=== PATIENT | female | born 1945 | race Caucasian/White ===

== ENCOUNTER 2022-12-23 10:45 | Outpatient (CLI) | payer MEDICARE, OTHER, SELFPAY | END 2022-12-23 10:46 | disposition home or self-care (01) | PROVIDERS: PCP Family Medicine; Visit Provider Internal Medicine | DX: I42.2 Other hypertrophic cardiomyopathy (principal); I34.0 Nonrheumatic mitral (valve) insufficiency; I07.1 Rheumatic tricuspid insufficiency; I51.7 Cardiomegaly | CPT/HCPCS: 93306 ==

== ENCOUNTER 2023-03-23 10:36 | Outpatient (RCR) | payer SELFPAY | END 2024-02-19 14:46 | disposition home or self-care (01) | LOC: MOW 10:36 | PROVIDERS: PCP Family Medicine; Visit Provider Family Medicine | DX: Z76.0 Encounter for issue of repeat prescription (principal) | CPT/HCPCS: S5170 ==

== ENCOUNTER 2023-05-20 21:25 | Emergency (ER) | payer MEDICARE, OTHER, SELFPAY ==
[2023-05-20 21:34] VITALS: BP 121/74; PULSE 74; RESP 18; TEMP 36.8; O2SAT 99; BMI 18.3
--- NOTE | 2023-05-20 21:49 | ED.GENADULT ---
HPI - General Adult General Chief complaint: Laceration/Wound Stated complaint: fall w/head lac, dizzy Time Seen by Provider: 05/20/23 21:26 History of Present Illness HPI narrative: I had initiated this note as below --patient ultimately left before being seen. CC: Head Laceration, Dizzy pt. was dizzy and hit head. unsure what she hit it on. denies LOC 78-year-old woman presenting to the emergency department after falling and hitting her head. She sustained a laceration Related Data Home Medications Medication Instructions Recorded Confirmed No Known Home Medications 05/20/23 05/20/23 Allergies Allergy/AdvReac Type Severity Reaction Status Date / Time No Known Drug Allergies Allergy Verified 05/20/23 21:38 Exam Const: Vital Signs, click to edit/add: Vital Signs - 24 hr 05/20/23 21:34 Temperature 98.2 F Pulse Rate [Right Pulse Oximeter] 74 Respiratory Rate 18 Blood Pressure [Ri ght Upper Arm] 121/74 Pulse Oximetry 99 Oxygen Delivery Me thod Room Air Course Vital Signs Vital signs: Initial Vital Signs Temperature 98.2 F 05/20/23 21:34 Temperature Source Temporal Artery Scan 05/20/23 21:34 Pulse Rate 74 05/20/23 21:34 Respiratory Rate 18 05/20/23 21:34 Blood Pressure 121/74 05/20/23 21:34 Blood Pressure Mean 89 05/20/23 21:34 Blood Pressure Position Sitting 05/20/23 21:34 Pulse Oximetry 99 05/20/23 21:34 Oxygen Delivery Method Room Air 05/20/23 21:34 Vital Signs Temperature 98.2 F 05/20/23 21:34 Pulse Rate 74 05/20/23 21:34 Respiratory Rate 18 05/20/23 21:34 Blood Pressure 121/74 05/20/23 21:34 Pulse Oximetry 99 05/20/23 21:34 Oxygen Delivery Method Room Air 05/20/23 21:34 Temperature 98.2 F 05/20/23 21:34 Pulse Rate 74 05/20/23 21:34 Respiratory Rate 18 05/20/23 21:34 Blood Pressure 121/74 05/20/23 21:34 Pulse Oximetry 99 05/20/23 21:34 Oxygen Delivery Method Room Air 05/20/23 21:34 Discharge Plan Discharge Prescriptions: No Action No Known Home Medications Follow Up/Referrals: Labenski,Leland E, MD [Primary Care Provider] -
--- NOTE | 2023-05-20 22:06 | ED.NURSE ---
pt. wanting to go home. feels she is better. refusal form signed. pt. left ER ambulatory.
== END 2023-05-20 22:09 | disposition home or self-care (01) ==
LOC: ED 22:09
PROVIDERS: Emergency Provider Family Medicine; PCP Family Medicine
DX: Z53.21 Procedure and treatment not carried out due to patient leaving prior to being seen by health care provider (principal)
CPT/HCPCS: 99281

== ENCOUNTER 2024-04-04 10:37 | Observation (INO) | payer MEDICARE, OTHER, SELFPAY ==
[2024-04-04] VITALS (29 sets, daily range): BP systolic 85–124; BP diastolic 48–86; PULSE 63–73; RESP 16; TEMP 36.1–36.3; O2SAT 94–99; BMI 16.5; BMI 17.8
--- NOTE | 2024-04-04 10:55 | ED_ITS ---
HPI - General Adult General Date Seen: 04/04/24 Chief complaint: Weakness Stated complaint: weak, no energy, chills Time Seen by Provider: 04/04/24 10:54 History of Present Illness HPI narrative: 79-year-old female who is brought to the ER today by her brother. She has apparently been sick for a few weeks with low energy, weakness, feeling cold in freezing. They were concerned she might be anemic. She has not been eating and drinking well and getting good nutrition. She is feeling short of breath with walking. She has been missing her appointments with Dr. Figueredo History from the patient and her brother and [id number] is that she is just not doing well for the past several months. She has long history of depression but had been fairly functional over the winter last August and September. Sounds like her mental health began to deteriorate over the winter. She lost interest in leaving her apartment. She has not been participating in her other activities. She has been much more reclusive. For the past couple of months she has had progressive generalized weakness, fatigue, dyspnea on exertion. She has been dizzy sometimes when standing up. She has not left her apartment to go to the grocery store in several weeks. It sounds like she had some leftover cans of supinate she has been eating mostly that and drinking lots of water. Her brother checks on her from time to time. She finally called him to ask him to bring her some groceries today but rather than just drop off groceries he did want to stop the check on her. She has not been showering or taking baths lately because she has just been too dizzy and weak. She stopped taking all of her medications perhaps 3 weeks ago. It is a little bit unclear how long that was. She has had increasing weakness and shortness of breath. She feels like she is having trouble focusing. When we talk about her mental health she says that she adamantly does not want any inpatient mental health care. Sounds like she had her last appointment with her psychiatrist was remote visit in January-see records below. She missed her most recent checkup. She has not been taking the prescribed Remeron but had been taking the SSRI until she stopped all of her meds a couple of weeks ago. She is not suicidal or homicidal. She does want stay home and be with her cat. She recognizes that she is not function hearing are well and can not really take care of herself her beta herself at home. At the same time she is resistant to changing anything. She does not want inpatient stay. She has no previous medical records here at [facility]. She does have records through the [facility] record system. She has a history hypertrophic cardiomyopathy, hypertension, fibroid myocarditis, chronic diastolic CHF. Also history of hypothyroidism, malnutrition, vitamin-D deficiency, thyroid nodule, colon polyps, iron deficiency anemia , chronic fatigue syndrome, ordering disorder, depression, PTSD, dependent personality disorder, sleep apnea, fibromyalgia Most recent medication list from the [facility] system includes: Acetaminophen Atenolol 12.5 mg daily Lipitor Prozac 60mg daily Lasix 20 mg daily Hydroxyzine p.r.n. Synthroid 88 mcg daily Remeron Provigil potassium chloride Trazodone Hydrocortisone ointment Triamcinolone ointment In the [employer] record there is a letter from February 22 indicating that she had missed appointments for checkups at the [facility] and [facility] and they were going to limit her ability to schedule future appointments to same day. She had a virtual visit with psychiatry on January 31. From that note; Last visit was 01/04/24 with a plan to continue meds the same ? Since then, Sharee reports that her mood is feeling better this week. She has not started the mirtazapine as discussed at last OV Last week- states she was manicky- didn't sleep for 2.5 days- didn't feel tired, felt hyper- was trying to clean and organize things in her apartment. Mood is often variable- can go into deeper depression- this can last for a week or a day and often fluctuates depending on external stressors (like when her daughter was struggling with her mental health and when her brother was sick). She was going to try to keep track of her mood cycles so she can be more specific for this. Sleep is now back to normal and is good this week. ? Her physical therapist called us with some concern about this well. Wonders if she has ADHD. ? Has had a lot of stressors- Her daughter has not been doing well with her mental health. They are talking more now which has been helpful. Brother has been sick and not doing well. ? Had physical with Dr. Light on 12/13. Is working with integrative medicine ? Had started acupuncture -then couldn't go when she got sick. Planning to get this rescheduled. ? - catMitchell, is doing good, ? Still struggling with chronic pain and fatigue, low energy. She continues to take provigil (mode-alert) that she orders online. Taking this daily. Does not feel she can function without this. ? No longer using marijuana-wishes she had some as she believes this helps helps fibromyalgia and anxiety. ? She has had some difficulty with med adherence in the past, though has been taking them daily again recently ? SUICIDE RISK ASSESSMENT: Suicide risk: denies Pt is future oriented and identifies the following things that are worth living for: cat Homicide risk: none reported Self-injury risk: no ? Current medications: -trazodone 50mg at bedtime for sleep as needed- has been taking this again, though causes nasal congestion -hydroxyzine 25mg up to three times daily for anxiety -Fluoxetine 60mg once daily Patient has a history of chronic pain,?fibromyalgia, sleep apnea, hypertension,??hypothyroidism, hypertrophic cardiomyopathy and mental health diagnoses including major depression, chronic PTSD, anxiety and a history of dependent personality disorder; cluster B personality traits. She?has had historical difficulty with memory,?organization,?and distractibility without any notable memory changes or worsening at this time;?neuropsych testing was completed in 2014. At that time an ILS worker was recommended. 72 hour hold in [place] (-07/14/2021) due to passive thoughts of / worsening depression. ? She presents today for a medication recheck with worsening of depression and sleep last week- though reports that mood and sleep have improved this week. difficult to track cycles with mood as there is ambiguity surrounding symptoms- though given brief, fluctuating nature of these- it is more likely a response to environmental/psychosocial stressors. ? Still taking provigil from an unknown source and I do wonder if this is a contributing factor to her ups and downs with mood and intermittent sleep difficulties- though she does not wish to discontinue this. ? -retrial with mirtazapine; hold trazodone at first to see if this helps with sleep- will try a higher dose to target depression. Previous trial was brief and only at 7.5mg. ? Expressed concern re: continuing on provigil without this being monitored (in past she had ordered this internationally when it was not being prescribed to her). Encouraged her to stop this given cardiac and mental health risks. Future considerations include something like olanzapine or sapphris for sleep at night, depression, and anxiety. Could consider trial with buspar for anxiety ? ? PLAN ? Patient Instructions Sharee -It was really nice to meet with you today. Here is the plan we discussed. Please call me at the clinic , or send a medical message in the meantime with any further questions, concerns, or worsening symptoms. ? 1. Continue the following medications: -trazodone 50mg at bedtime as needed --Fluoxetine 60mg once daily ? 2. Change the following medications: -let's retry mirtazapine at a higher dose to help with sleep and depression/ anxiety - take 1/2 tablet- 7.5mg at bedtime for 1 week, then increase to 1 tablet (15mg) at bedtime -hold trazodone as you start the mirtazapine as you may not need this; do not take hydroxyzine at bedtime along with the mirtazapine as this may make you too tired ? 3. Therapy recommendations: -Consider therapy Related Data Home Medications ?Medication ?Instructions ?Recorded ?Confirmed atenolol 04/04/24 atorvastatin 20 mg tablet 20 mg PO DAILY 04/04/24 04/04/24 fluoxetine 20 mg tablet 20 mg PO DAILY 04/04/24 04/04/24 fluoxetine 40 mg capsule 40 mg PO DAILY 04/04/24 04/04/24 furosemide 20 mg tablet 20 mg PO DAILY 04/04/24 04/04/24 hydroxyzine pamoate 04/04/24 levothyroxine 88 mcg capsule 88 mcg PO DAILY 04/04/24 04/04/24 mirtazapine 15 mg tablet 15 mg PO DAILY 04/04/24 04/04/24 modafinil 200 mg tablet 200 mg PO DAILY 04/04/24 04/04/24 potassium chloride 20 mEq 20 meq PO DAILY 04/04/24 04/04/24 tablet,extended release(part/cryst) (Klor-Con M) trazodone 50 mg tablet 50 mg PO DAILY 04/04/24 04/04/24 Allergies Allergy/AdvReac Type Severity Reaction Status Date / Time No Known Drug Allergies Allergy Verified 04/04/24 14:09 [facility] Social History Smoking Status: Former smoker How often do you have a drink containing alcohol: never AUDIT-C Alcohol total score: 0 Non-prescribed substance use: marijuana (any form) Exam Const: Vital Signs, click to edit/add: Vital Signs - 24 hr 04/04/24 10:51 04/04/24 11:12 04/04/24 11:15 Temperature 97.1 F L Pulse Rate 73 69 Pulse Rate [Left P ulse Oximeter] 68 Respiratory Rate 16 Blood Pressure Blood Pressure [Ri ght Upper Arm] 115/80 Pulse Oximetry 99 98 98 Oxygen Delivery Me thod Room Air 04/04/24 11:30 04/04/24 11:45 04/04/24 11:47 Temperature Pulse Rate 68 69 69 Pulse Rate [Left P ulse Oximeter] Respiratory Rate Blood Pressure 115/86 Blood Pressure [Ri ght Upper Arm] Pulse Oximetry 97 97 97 Oxygen Delivery Me thod 04/04/24 11:48 04/04/24 12:27 04/04/24 12:30 Temperature Pulse Rate 70 71 67 Pulse Rate [Left P ulse Oximeter] Respiratory Rate Blood Pressure Blood Pressure [Ri ght Upper Arm] Pulse Oximetry 97 94 96 Oxygen Delivery Me thod 04/04/24 12:35 04/04/24 13:00 04/04/24 13:02 Temperature Pulse Rate 68 71 66 Pulse Rate [Left P ulse Oximeter] Respiratory Rate Blood Pressure 105/71 Blood Pressure [Ri ght Upper Arm] Pulse Oximetry 97 95 97 Oxygen Delivery Me thod 04/04/24 13:03 04/04/24 13:30 04/04/24 13:32 Temperature Pulse Rate 67 72 65 Pulse Rate [Left P ulse Oximeter] Respiratory Rate Blood Pressure 105/65 Blood Pressure [Ri ght Upper Arm] Pulse Oximetry 96 97 96 Oxygen Delivery Me thod 04/04/24 14:00 04/04/24 14:02 04/04/24 14:30 Temperature Pulse Rate 70 72 72 Pulse Rate [Left P ulse Oximeter] Respiratory Rate Blood Pressure Blood Pressure [Ri ght Upper Arm] Pulse Oximetry 94 94 96 Oxygen Delivery Me thod Course Course ED Course: Constitutional: Appears well-developed. Alert but relies on her [id number] and brother to provide a lot of her history. Hair is on wash. Patient says she just has not had energy to get out of bed or take a bath or shower in the past couple of weeks. She stopped taking her meds for couple of weeks. Temperature 97.1?. HENT: Head: Atraumatic. Nose: Nose normal. Mouth/Throat: Oral mucosa is clear and moist. no trismus. Pharynx normal Eyes: Conjunctivae normal. EOM normal. Pupils equal, round, and reactive to light. No scleral icterus. Neck: Normal range of motion. Neck supple. No tracheal deviation present. No thyroid masses. Cardiovascular: Normal rate, regular rhythm. No gallop. No friction rub. No murmur heard. Symmetric radial artery pulses Pulmonary/Chest: Effort normal. No stridor. No respiratory distress. No wheezes. No rales. No rhonchi . No tenderness. Abdominal: Soft. Bowel sounds normal. No distension. No mass. No tenderness. No rebound. No guarding. No CVA tenderness Musculoskeletal: RUE: Normal range of motion. No tenderness. No deformity LUE: Normal range of motion. No tenderness. No deformity RLE: Normal range of motion. No edema. No tenderness. No deformity LLE: Normal range of motion. No edema. No tenderness. No deformity Neurological: Alert and oriented to person, place, and time. Normal strength. CN II-VII intact. No sensory deficit. GCS eye subscore is 4. GCS verbal subscore is 5. GCS motor subscore is 6. Normal coordination Skin: Skin is warm and dry. No rash noted. No pallor. Normal capillary refill. Psychiatric: Initially says very passive, poor eye contact, looking at her brother instead of me. Relies on her family provide a lot of her initial history. She then BP becomes a little bit more conversant. She does have a long history of depression and PTSD. She and her family agree that she was doing pretty well last fall in last September. Over the winter her mental health deteriorated. It sounds like she had stressors with a problem with her daughter and her brother's health. It sounds like she has really gone into a deep dark place over the winter. She has. Leaving her apartment or participating in activities. She does have a psychiatrist and her last remote visit with the psychiatrist was in January. At that time her psychiatrist was recommending that she start Remeron. Ultimately she did not start taking it because she was worried about side effects. She was taking her Zoloft. However it sounds like she has been sporadic on taking her medications (all of them including Lasix and thyroid medicine as well) and she is pretty sure she has not taken any of them in the past 3 weeks or so. She says she accidentally spilled her pills on the floor and just did not have the energy to sort them out. She has not left her apartment in several weeks. It sounds like she had some leftover cans of food so she has been eating some soup. She says she mostly just drinks a lot of water. Vital Signs Vital signs: Initial Vital Signs Temperature 97.1 F L 04/04/24 10:51 Temperature Source Temporal Artery Scan 04/04/24 10:51 Pulse Rate 68 04/04/24 10:51 Respiratory Rate 16 04/04/24 10:51 Blood Pressure 115/80 04/04/24 10:51 Blood Pressure Mean 91 04/04/24 10:51 Blood Pressure Position Semi-Fowlers 04/04/24 10:51 Pulse Oximetry 99 04/04/24 10:51 Oxygen Delivery Method Room Air 04/04/24 10:51 Vital Signs Temperature 97.1 F L 04/04/24 10:51 Pulse Rate 68 04/04/24 10:51 Respiratory Rate 16 04/04/24 10:51 Blood Pressure 115/80 04/04/24 10:51 Pulse Oximetry 99 04/04/24 10:51 Oxygen Delivery Method Room Air 04/04/24 10:51 Temperature 97.1 F L 04/04/24 10:51 Pulse Rate 72 04/04/24 14:30 Respiratory Rate 16 04/04/24 10:51 Blood Pressure 105/65 04/04/24 13:32 Pulse Oximetry 96 04/04/24 14:30 Oxygen Delivery Method Room Air 04/04/24 10:51 Medications Administered Medications: Discontinued Medications Generic Name Dose Route Start Last Admin Trade Name Freq PRN Reason Stop Dose Admin Cephalexin HCl 500 mg 04/04/24 14:53 04/04/24 15:07 Cephalexin 500 Mg Capsule PO 04/04/24 14:54 500 mg ONCE ONE Administration Folic Acid 1 mg/ Multivitamins 1,011.2 mls @ 500 mls/hr 04/04/24 12:40 04/04/24 13:22 10 ml/ Thiamine HCl 100 mg/ IV 04/04/24 14:41 500 mls/hr Sodium Chloride .Q2H2M JAYLENE Administration Medical Decision Making MDM Narrative Medical decision making narrative: 79-year-old female with a complex past medical history presenting to the ER today after being brought in by her brother and [id number] with concern for generalized weakness, dyspnea on exertion, poor functioning, not leaving her house now for several weeks, and she has been off all of her medications for at least 3 weeks. Differential for her symptoms is quite broad. 1. Psych. Has a long history of mental health problems and depression. It sounds like at least some of her symptoms were probably triggered by severe worsening depression over the winter. It has gotten to the point where she is not leaving her house or participating any of her normal activities. She stopped taking her meds. She has not currently suicidal. No apparent loosen a shins or delusions. However it does seem that her overall level of function is impairing her ability to care for herself. She has been leaving her house, buying groceries, or taking her meds. 2. Consider metabolic causes of generalized weakness. She does report mostly drinking lot of water and there was concern that she is not getting enough nutrition. I have ordered IV fluids with thiamine and folate. Fortunately sodium level looks normal. Kidney function other likes lytes okay. LFTs essentially normal save for minimal abnormality of AST at 45. Albumin is 4.7. 3. Endocrine. She does have a history of hypothyroidism and is not been taking her Synthroid for the past 3 weeks, at least. TSH elevated, but free T4 is pending. strongly suspect hypothyoidism. will re-initiate synthroid PO here. no definitive evidence for bradycardia, but she does have borderline hypothermia.. Blood glucose is normal at 112. Sodium is normal at 136. Potassium mildly low at 3.5. No clear lab evidence to suggest adrenal insufficiency. 2cm throid nodule that requires follow up outpatient US. 4. Cardiac. Has a reported history of myocarditis in chronic diastolic CHF. Workup here in the ER does show abnormal EKG with nonspecific T-wave and ST changes, large QRS voltages. Mildly abnormal troponin at 0.07. Repeat troponin is unchanged, arguing against ACS. Suspect related to underlying LVH or myocarditis.. N terminal proBNP is also elevated at about 8400. Consider possible CHF but she is not having any peripheral edema and chest x-ray does not show any pulmonary edema. Although she has dyspnea with activity and exertion, she is not hypoxic at rest. No tachycardia or significant bradycardia. Chest CT neg for PE and neg for pulmonary edema. In review of records from [facility] she had a transesophageal echocardiogram on 03/14/2023 Final Impressions: 1. Decreased left ventricular size, increased global systolic function with an estimated EF of 65 - 70%. 2. Severe evidence of left ventricular hypertrophy. No evidence for NUNO on today's imaging. 3. Mildly enlarged left atrium. 4. The mitral valve is sclerotic (no prolapse/flail), moderate very early peaking mitral regurgitation. 5. Tricuspid valve is myxomatous. Moderate tricuspid regurgitation. 6. Atrial septum is intact. 7. Negative bubble study. 8. No evidence of thrombus present in the left atrial appendage. 9. Normal sized aortic arch with mild plaque visualized. 5. Pulmonary. Chest x-ray negative for any pneumonia or pulmonary edema. Lung sounds clear. No wheezing or bronchospasm. Chest x-ray does show a [address] is obtained and is neg for PE, pna, CHF. It does show a 10mm calcified RLL nodule. also 2cm throid nodule that requires follow up outpatient US. In review of records through [facility] she had a screening chest CT in May 2023. She had up partially calcified nodule in the right lower lobe measuring 9 mm. Recommended continued surveillance with another CT scan in 12 months at that time. 6. ID UA abnormal. no clear sign of urosepsis. will treat with PO cephalexin. d/w Hospitalist Dr. elias, who will accept Lab Data Labs: Lab Results 04/04/24 04/04/24 04/04/24 Range/Units 11:45 12:50 14:33 WBC 4.07 L (4.50-11.00) K/uL RBC 4.34 (4.00-5.20) m/uL Hgb 13.8 (12.0-16.0) gm/dL Hct 40.7 (33.0-51.0) % MCV 94 (80-100) fL MCH 32 (26-34) pg MCHC 34 (32-36) gm/dL RDW Coeff of Lea 12.1 (11.5-15.5) % Plt Count 219 (140-440) K/uL Neut % (Auto) 60.2 (42.0-72.0) % Lymph % (Auto) 28.5 (20-44) % [place] % (Auto) 8.8 (0.0-11.0) % Eos % (Auto) 2.0 (0.0-7.0) % Baso % (Auto) 0.5 (0.0-3.0) % Neut # (Auto) 2.50 (1.7-7.0) K/uL Lymph # (Auto) 1.20 (0.90-2.90) K/uL [place] # (Auto) 0.40 (0.00-0.90) K/UL Eos # (Auto) 0.10 (0.00-0.50) K/uL Baso # (Auto) 0.00 (0.00-0.30) K/uL Abs Immat Gran (auto) 0.00 (0.00-0.30) K/uL Imm/Tot Granulo (auto) 0.0 % Sodium 136 (135-149) mmol/L Potassium 3.5 L (3.6-5.1) mmol/L Chloride 98 (96-114) mmol/L Carbon Dioxide 28 (20-32) mmol/L Anion Gap 10 (7-15) mEq/L BUN 20 (7-30) mg/dL Creatinine 1.1 (0.5-1.5) mg/dL Estimated Creat Clear 27.60 Estimated GFR 52 ml/min Glucose 112 (60-115) mg/dL Lactate 1.5 (0.5-1.9) mmol/L Calcium 9.5 (8.4-10.6) mg/dL Total Bilirubin 0.6 (0.1-1.5) mg/dL AST 45 H (12-35) U/L ALT 14 (4-35) U/L Alkaline Phosphatase 122 (40-150) U/L Troponin I 0.07 H* 0.07 H* (0.01-0.04) ng/mL NT-Pro-B Natriuret Pep 8470 pg/mL Total Protein 7.6 (6.0-8.3) g/dL Albumin 4.7 (3.3-5.0) g/dL TSH 7.740 H (0.270-4.200) uIU/mL Urine Color Dark yellow (Yellow) Urine Appearance Cloudy A (Clear) Urine pH 5.5 (5.0-8.5) Ur Specific [place] 1.025 (1.000-1.030) Urine Protein 1+ A (Negative) Urine Glucose (UA) Negative (Negative) Urine Ketones Trace A (Negative) Urine Blood 1+ A (Negative) Urine Nitrite Negative (Negative) Urine Bilirubin 2+ A (Negative) Urine Urobilinogen 0.2 (0.2-1.0) Ur Leukocyte Esterase 3+ A (Negative) Urine RBC 0-2 (0-2) Urine WBC 10-25 A (0-5) Ur Squamous Epith Cells Few (None-Few) Urine Bacteria Moderate A (None) Urine Mucus Many A (None) Ethyl Alcohol < 0.01 L (0.01-0.03) % Imaging Data Chest x-ray: Attestation: I have reviewed the pertinent imaging results. Radiologist's impression: Impression: 1. No acute cardiopulmonary abnormality identified. 2. Nodular opacity in the right lower lobe measuring 10 mm. Recommend nonemergent chest CT for further characterization. CT scan - head: Attestation: I have reviewed the pertinent imaging results. Radiologist's impression: Impression: 1. Age-related changes of the brain without acute intracranial abnormality. CT scan - chest: Attestation: I have reviewed the pertinent imaging results. Radiologist's impression: IMPRESSION: 1. No evidence of pulmonary embolus. 2. Moderate centrilobular emphysema. 3. Prominent left ventricular hypertrophy. 4. Enlargement of the left lobe of the thyroid, probable 2.0 centimeter lesion at the lower pole. Suggest follow-up outpatient thyroid ultrasound for further characterization. 5. Old granulomatous disease. Discharge Plan Discharge Prescriptions: No Action atenolol atorvastatin 20 mg tablet 20 mg PO DAILY fluoxetine 40 mg capsule 40 mg PO DAILY fluoxetine 20 mg tablet 20 mg PO DAILY furosemide 20 mg tablet 20 mg PO DAILY hydroxyzine pamoate levothyroxine 88 mcg capsule 88 mcg PO DAILY mirtazapine 15 mg tablet 15 mg PO DAILY modafinil 200 mg tablet 200 mg PO DAILY potassium chloride [Klor-Con M20] 20 mEq tablet,ER particles/crystals 20 meq PO DAILY trazodone 50 mg tablet 50 mg PO DAILY Follow Up/Referrals: Leland Light MD [Primary Care Provider] -
--- NOTE | 2024-04-04 11:37 | CRLHL7_ITS ---
For Patients: As a result of the Century Cures Act, medical imaging exams and procedure reports are released immediately into your electronic medical record. You may view this report before your referring provider. If you have questions, please contact your health care provider. Indication: Weakness, dizziness moderate Technique: Volumetric multidetector CT images of the head were obtained without the administration of low osmolar intravenous contrast. Comparison: None available Findings: There is no intra-axial or extra-axial fluid collection. There is no mass effect or midline shift. There is age-related cortical atrophy with mild sulcal widening and ex vacuo dilatation of the lateral ventricles. There are chronic small vessel disease changes in the subcortical and periventricular white matter without lost barber-white differentiation. The orbits and their contents are grossly within normal limits. The bony calvarium is grossly intact. The paranasal sinuses are clear. The mastoid air cells are well aerated. Impression: 1. Age-related changes of the brain without acute intracranial abnormality. Please note that all CT scans at this facility use dose modulation, iterative reconstruction, and/or weight-based dosing when appropriate to reduce radiation dose to as low as reasonably achievable. Dictated by Sam Davis MD @ 04/04/2024 12:49:02 PM (Electronically Signed)
--- NOTE | 2024-04-04 11:38 | CRLHL7_ITS ---
For Patients: As a result of the Century Cures Act, medical imaging exams and procedure reports are released immediately into your electronic medical record. You may view this report before your referring provider. If you have questions, please contact your health care provider. Indication: Weakness, dyspnea on exertion. Technique: Two view(s) of the chest. Comparison: 11/27/2021 radiograph. Findings: Normal cardiomediastinal silhouette. Mild atherosclerotic aortic calcifications. Pulmonary vasculature is normal. Lungs are well inflated. Nodular density measuring 10 mm along the right diaphragmatic margin on frontal view appears to be retrocardiac within the right lower lobe on lateral view. No focal consolidation. No pleural effusion or pneumothorax. No acute osseous abnormality identified. Impression: 1. No acute cardiopulmonary abnormality identified. 2. Nodular opacity in the right lower lobe measuring 10 mm. Recommend nonemergent chest CT for further characterization. Dictated by Ana Corrigan MD @ 04/04/2024 12:15:59 PM (Electronically Signed)
[2024-04-04 11:57] LABS: Lactate* 1.5 mmol/L (0.5-1.9)
[2024-04-04 12:00] LABS: Basophils Percent Auto 0.5 % (0.0-3.0); Hematocrit 40.7 % (33.0-51.0); Hemoglobin* 13.8 gm/dL (12.0-16.0); Lymphocytes Percent Auto 28.5 % (20-44); Mean Corpuscular HGB Conc 34 gm/dL (32-36); Mean Corpuscular Hemoglobin 32 pg (26-34); Mean Corpuscular Volume 94 fL (80-100); Monocytes Percent Auto 8.8 % (0.0-11.0); Neutrophils Percent Auto 60.2 % (42.0-72.0); Platelet Count* 219 K/uL (140-440); RDW Coefficient of Variation % 12.1 % (11.5-15.5); Red Blood Count 4.34 m/uL (4.00-5.20); White Blood Count* 4.07 K/uL (4.50-11.00)
[2024-04-04 12:10] LABS: Slide Review Reflex No
[2024-04-04 12:12] LABS: Albumin* 4.7 g/dL (3.3-5.0); Chloride* 98 mmol/L (96-114); Sodium* 136 mmol/L (135-149)
[2024-04-04 12:13] LABS: Potassium* 3.5 mmol/L (3.6-5.1)
[2024-04-04 12:14] LABS: Creatinine* 1.1 mg/dL (0.5-1.5); Estimated Glomerular Filt Rate 52 ml/min
[2024-04-04 12:15] LABS: Alanine Aminotransferase* 14 U/L (4-35); Alkaline Phosphatase* 122 U/L (40-150); Anion Gap 10 mEq/L (7-15); Aspartate Amino Transferase* 45 U/L (12-35); Bilirubin Total* 0.6 mg/dL (0.1-1.5); Blood Urea Nitrogen* 20 mg/dL (7-30); Carbon Dioxide* 28 mmol/L (20-32); Glucose* 112 mg/dL (60-115); Total Protein* 7.6 g/dL (6.0-8.3)
[2024-04-04 12:16] LABS: Calcium* 9.5 mg/dL (8.4-10.6)
[2024-04-04 12:27] LABS: Ethanol* < 0.01 % (0.01-0.03); NT Pro B Type NatriureticPept* 8470 pg/mL
[2024-04-04 12:28] LABS: Troponin I* 0.07 ng/mL (0.01-0.04)
--- NOTE | 2024-04-04 12:39 | CRLHL7_ITS ---
For Patients: As a result of the Century Cures Act, medical imaging exams and procedure reports are released immediately into your electronic medical record. You may view this report before your referring provider. If you have questions, please contact your health care provider. INDICATION: Weakness and shortness of breath TECHNIQUE: CT chest PE was acquired with 95 cc Isovue 370 intravenous contrast. COMPARISON: None. FINDINGS: Heart and vasculature: Contrast opacification of the pulmonary arterial tree is adequate. No sign of pulmonary embolism. Thoracic aorta is normal in caliber. Left ventricular hypertrophy. No pericardial effusion Lungs and pleural: No pleural effusion or pneumothorax. Moderate centrilobular emphysema. Calcified granulomas right lower lobe. Lymph nodes/mediastinum: Calcified subcarinal lymph nodes. Enlargement of the left lobe of the thyroid inferiorly, likely a 2.0 centimeter lesion. Chest wall: Bilateral breast implants. Upper abdomen: Colonic diverticulosis. Bones: Unremarkable for age. IMPRESSION: 1. No evidence of pulmonary embolus. 2. Moderate centrilobular emphysema. 3. Prominent left ventricular hypertrophy. 4. Enlargement of the left lobe of the thyroid, probable 2.0 centimeter lesion at the lower pole. Suggest follow-up outpatient thyroid ultrasound for further characterization. 5. Old granulomatous disease. Please note that all CT scans at this facility use dose modulation, iterative reconstruction, and/or weight-based dosing when appropriate to reduce radiation dose to as low as reasonably achievable. Dictated by Ronnie Frazier MD @ 04/04/2024 2:33:03 PM (Electronically Signed)
[2024-04-04 13:17] LABS: Appearance Urine Cloudy (Clear); Bilirubin Urine 2+ (Negative); Blood Urine 1+ (Negative); Color Urine Dark yellow (Yellow); Glucose Urine Negative (Negative); Ketones Urine Trace (Negative); Leukocyte Esterase Urine 3+ (Negative); Nitrite Urine Negative (Negative); Protein Urine 1+ (Negative); Specific Gravity Urine 1.025 (1.000-1.030); Urobilinogen Urine 0.2 (0.2-1.0); pH Urine 5.5 (5.0-8.5)
[2024-04-04 13:56] LABS: Bacteria Urine Moderate; Mucus Urine Many; RBC Urine 0-2 (0-2); Squamous Epithelial Cell Urine Few (None-Few)
[2024-04-04] MEDS: cephALEXin 500 MG CAPSULE PO ×2 (15:07→21:02)
[2024-04-04 15:26] LABS: Troponin I* 0.07 ng/mL (0.01-0.04)
[2024-04-04] MEDS: LEVOTHYROXINE 100 MCG TABLET PO (15:35)
--- NOTE | 2024-04-04 16:26 | PM.IMHP1 ---
Hospitalist- H&P: [place] History of Present Illness Date Seen: 04/04/24 Chief complaint: weak, no energy, chills Narrative: Sharee Grimes is a 79 year old female with longstanding history of depression as well as hypertrophic cardiomyopathy, heart failure, fibromyalgia, hypothyroidism presents with several weeks of worsening depression, fatigue, dyspnea with exertion, poor appetite and weakness. History is obtained from the patient as well as her [id number], Susan, and brother, Adan, who live in [place]. Patient reports that she has had problems for weeks. Her brother and [id number] have noted a significant change especially in the last 3 weeks. During that time she reports basically that she has not left her apartment except wants to pay her rent across the street. She has not been taking any of her medications except yesterday she did take her antidepressant, fluoxetine, and levothyroxine. No other medications in the last 3 weeks at least. She tells me she did not really even recognize that she was not taking her medications. She has not been going out to get food. She says that she had enough food in her place a month ago that she has not had to go shopping. She has a poor appetite and has not been eating much. Her mood has been quite depressed. Over the past couple months she has been missing appointments has been told by her [facility] that they will not let her schedule appointments in advance anymore because of all the missed appointments. Mostly she reports that she has just does not care anymore that her health is on such a decline. She denies suicidality. She indicates however that she has not taken any attempt to get help from friends, family or healthcare providers. She has been in treatment for depression in the past. She has been getting outpatient treatment through [facility] with Karen Darden who manages her medications. She does not smoke but has a remote history of smoking. She tells me she carries a diagnosis of COPD but is not being treated for it. She does not drink alcohol. She occasionally smokes cannabis but has not for months. She has not been making her appointments with physical therapy, Chester Liu, her primary care provider, Dr. Light or Karen Darden. She has also gotten healthcare from the [facility]. She reports she has had chronic dyspnea with exertion but that has gotten worse recently. She reports that she had to stop 3 times [address] across the [address] catch her breath. She has very poor exercise tolerance. She also reports being quite weak. She has very little physical activity recently. She reports she has been eating less and her appetite has been poor. It is unclear if she has had weight loss. Over the past several years her weight has fluctuated between 45 and 50 kg. She has not had problems with vomiting. Her stools are small and very loose but not frequent. She is not aware of any urinary symptoms though urinalysis is abnormal. No dysuria or frequency or urgency. She has not any bloody stools. She does not have abdominal pain or fever. She does not have chest pain. She has been followed by [facility] for her hypertrophic cardiomyopathy. Her last visit was in 02/27/2023. She had an echo around that time showing ejection fraction of 65-70% with evidence of severe left ventricular hypertrophy. No evidence for Jason on today's imaging. She has a sclerotic mitral valve and moderate to severe mitral regurgitation and moderate to severe tricuspid regurgitation. Cardiology recommendation at that time was to continue home medications atenolol and Lasix and additional p.r.n. Lasix if getting dyspneic. No other intervention was recommended other than annual follow-up. Review of Systems Narrative: Complete review of systems is unremarkable except as noted above Const: Denies: change in weight PFSH [facility] Medical History (Updated 04/04/24 @ 17:12 by Ken Graff MD) Hypertension ?I10 - Essential (primary) hypertension (ICD-10) Elevated troponin ?R79.89 - Other specified abnormal findings of blood chemistry (ICD-10) COPD (chronic obstructive pulmonary disease) ?J44.9 - Chronic obstructive pulmonary disease, unspecified (ICD-10) Weakness ?R53.1 - Weakness (ICD-10) Fatigue ?R53.83 - Other fatigue (ICD-10) Dyspnea ?R06.00 - Dyspnea, unspecified (ICD-10) Protein calorie malnutrition ?E46 - Unspecified protein-calorie malnutrition (ICD-10) Noncompliance with medication regimen ?Z91.148 - Patient's other noncompliance with medication regimen for other reason (ICD-10) Hypothyroidism ?E03.9 - Hypothyroidism, unspecified (ICD-10) Vitamin D deficiency ?E55.9 - Vitamin D deficiency, unspecified (ICD-10) Chronic fatigue syndrome ?G93.32 - Myalgic encephalomyelitis/chronic fatigue syndrome (ICD-10) Restless legs syndrome ?G25.81 - Restless legs syndrome (ICD-10) Fibromyalgia ?M79.7 - Fibromyalgia (ICD-10) Depression ?F32.A - Depression, unspecified (ICD-10) Hypertrophic cardiomyopathy ?I42.2 - Other hypertrophic cardiomyopathy (ICD-10) Surgical History (Updated 04/04/24 @ 16:49 by Ken Graff MD) S/P thyroid biopsy ?Z98.890 - Other specified postprocedural states (ICD-10) H/O ovarian cystectomy ?Z98.890 - Other specified postprocedural states (ICD-10) ?Z87.42 - Personal history of other diseases of the female genital tract (ICD-10) History of colonoscopy ?Z98.890 - Other specified postprocedural states (ICD-10) H/O breast augmentation ?Z98.82 - Breast implant status (ICD-10) H/O oral surgery ?Z98.890 - Other specified postprocedural states (ICD-10) Social History (Updated 04/04/24 @ 16:51 by Ken Graff MD) Narrative: She lives alone in an apartment in [place]. She reports closest family is her brother, Adan and auxvhp-du-aab Susan who also live in [place]. They indicate interest and motivation to be vigilant about checking on Sharee to make sure she is doing okay and taking her medications, taking care of herself, making medical appointments after discharge. She has a remote history of smoking but not recently. She does not drink alcohol. She does not use recreational drugs except a rare use of cannabis but not recently Smoking Status: Former smoker How often do you have a drink containing alcohol: never AUDIT-C Alcohol total score: 0 Non-prescribed substance use: marijuana (any form) Meds Home Medications and Allergies Home Medications ?Medication ?Instructions ?Recorded ?Confirmed ?Type atenolol 25 mg tablet 12.5 mg PO DAILY 04/04/24 04/04/24 History atorvastatin 20 mg tablet 20 mg PO HS 04/04/24 04/04/24 History fluoxetine 20 mg tablet 20 mg PO DAILY 04/04/24 04/04/24 History fluoxetine 40 mg capsule 40 mg PO DAILY 04/04/24 04/04/24 History furosemide 20 mg tablet 20 mg PO DAILY 04/04/24 04/04/24 History levothyroxine 88 mcg capsule 88 mcg PO DAILY 04/04/24 04/04/24 History mirtazapine 15 mg tablet 15 mg PO HS 04/04/24 04/04/24 History modafinil 200 mg tablet 200 mg PO TID 04/04/24 04/04/24 History potassium chloride 20 mEq 20 meq PO DAILY 04/04/24 04/04/24 History tablet,extended release(part/cryst) (Klor-Con M) Allergies Allergy/AdvReac Type Severity Reaction Status Date / Time No Known Drug Allergies Allergy Verified 04/04/24 14:09 Exam Narrative: Exam Narrative: She is alert and appears in no distress. She is pleasant cooperative and gives her own history. She has fairly good recall of recent events though somewhat vague about events leading up to this hospital stay. Eyes are normal. Sclerae nonicteric. Extraocular movements are full. There is no facial asymmetry. Oropharynx is normal. Neck is supple without mass or adenopathy. No jugular venous distension. Respirations are clear to auscultation. She has diminished breath sounds. No wheezing rales or rhonchi. Breathing is unlabored. Cardiovascular: S1, S2, regular rate and rhythm. No murmur gallop or rub. Distant heart sounds. Abdomen is soft without tenderness or mass. Bowel sounds are present. Extremities with no edema. Intact peripheral pulses. She moves all 4 extremities well. No edema. Const: Vital Signs, click to edit/add: Vital Signs - 24 hr 04/04/24 10:51 04/04/24 11:12 04/04/24 11:15 Temperature 97.1 F L Pulse Rate 73 69 Pulse Rate [Left P ulse Oximeter] 68 Respiratory Rate 16 Blood Pressure Blood Pressure [Ri ght Upper Arm] 115/80 Pulse Oximetry 99 98 98 Oxygen Delivery Me thod Room Air 04/04/24 11:30 04/04/24 11:45 04/04/24 11:47 Temperature Pulse Rate 68 69 69 Pulse Rate [Left P ulse Oximeter] Respiratory Rate Blood Pressure 115/86 Blood Pressure [Ri ght Upper Arm] Pulse Oximetry 97 97 97 Oxygen Delivery Me thod 04/04/24 11:48 04/04/24 12:27 04/04/24 12:30 Temperature Pulse Rate 70 71 67 Pulse Rate [Left P ulse Oximeter] Respiratory Rate Blood Pressure Blood Pressure [Ri ght Upper Arm] Pulse Oximetry 97 94 96 Oxygen Delivery Me thod 04/04/24 12:35 04/04/24 13:00 04/04/24 13:02 Temperature Pulse Rate 68 71 66 Pulse Rate [Left P ulse Oximeter] Respiratory Rate Blood Pressure 105/71 Blood Pressure [Ri ght Upper Arm] Pulse Oximetry 97 95 97 Oxygen Delivery Tx thod 04/04/24 13:03 04/04/24 13:30 04/04/24 13:32 Temperature Pulse Rate 67 72 65 Pulse Rate [Left P ulse Oximeter] Respiratory Rate Blood Pressure 105/65 Blood Pressure [Ri ght Upper Arm] Pulse Oximetry 96 97 96 Oxygen Delivery Me thod 04/04/24 14:00 04/04/24 14:02 04/04/24 14:30 Temperature Pulse Rate 70 72 72 Pulse Rate [Left P ulse Oximeter] Respiratory Rate Blood Pressure Blood Pressure [Ri ght Upper Arm] Pulse Oximetry 94 94 96 Oxygen Delivery Me thod 04/04/24 15:00 04/04/24 15:02 04/04/24 15:30 Temperature Pulse Rate 67 73 70 Pulse Rate [Left P ulse Oximeter] Respiratory Rate Blood Pressure 98/60 Blood Pressure [Ri ght Upper Arm] Pulse Oximetry 94 96 97 Oxygen Delivery Tx thod 04/04/24 15:32 04/04/24 15:32 04/04/24 16:00 Temperature Pulse Rate 68 68 68 Pulse Rate [Left P ulse Oximeter] Respiratory Rate Blood Pressure 107/66 107/66 Blood Pressure [Ri ght Upper Arm] Pulse Oximetry 97 97 99 Oxygen Delivery Me thod 04/04/24 16:02 Temperature Pulse Rate 68 Pulse Rate [Left P ulse Oximeter] Respiratory Rate Blood Pressure 124/75 Blood Pressure [Ri ght Upper Arm] Pulse Oximetry 98 Oxygen Delivery Me thod Documenting provider has reviewed patient's vital signs: yes Hospitalist - H&P: Result Labs Labs: Short CBC 04/04/24 Range/Units 11:45 WBC 4.07 L (4.50-11.00) K/uL Hgb 13.8 (12.0-16.0) gm/dL Hct 40.7 (33.0-51.0) % Plt Count 219 (140-440) K/uL BMP 04/04/24 11:45 Sodium 136 Potassium 3.5 L Chloride 98 Carbon Dioxide 28 BUN 20 Creatinine 1.1 Glucose 112 Calcium 9.5 Cardiac Enzymes 04/04/24 04/04/24 Range/Units 11:45 14:33 Troponin I 0.07 H* 0.07 H* (0.01-0.04) ng/mL Liver Function 04/04/24 Range/Units 11:45 Total Bilirubin 0.6 (0.1-1.5) mg/dL AST 45 H (12-35) U/L ALT 14 (4-35) U/L Alkaline Phosphatase 122 (40-150) U/L Albumin 4.7 (3.3-5.0) g/dL Urine 04/04/24 Range/Units 12:50 Urine Color Dark yellow (Yellow) Urine Appearance Cloudy A (Clear) Urine pH 5.5 (5.0-8.5) Ur Specific [place] 1.025 (1.000-1.030) Urine Protein 1+ A (Negative) Urine Glucose (UA) Negative (Negative) Imaging CT scan - head: Radiologist's impression: ndication: Weakness, dizziness moderate Technique: Volumetric multidetector CT images of the head were obtained without the administration of low osmolar intravenous contrast. Comparison: None available Findings: There is no intra-axial or extra-axial fluid collection. There is no mass effect or midline shift. There is age-related cortical atrophy with mild sulcal widening and ex vacuo dilatation of the lateral ventricles. There are chronic small vessel disease changes in the subcortical and periventricular white matter without lost barber-white differentiation. The orbits and their contents are grossly within normal limits. The bony calvarium is grossly intact. The paranasal sinuses are clear. The mastoid air cells are well aerated. Impression: 1. Age-related changes of the brain without acute intracranial abnormality. CT scan - chest: Radiologist's impression: INDICATION: Weakness and shortness of breath TECHNIQUE: CT chest PE was acquired with 95 cc Isovue 370 intravenous contrast. COMPARISON: None. FINDINGS: Heart and vasculature: Contrast opacification of the pulmonary arterial tree is adequate. No sign of pulmonary embolism. Thoracic aorta is normal in caliber. Left ventricular hypertrophy. No pericardial effusion Lungs and pleural: No pleural effusion or pneumothorax. Moderate centrilobular emphysema. Calcified granulomas right lower lobe. Lymph nodes/mediastinum: Calcified subcarinal lymph nodes. Enlargement of the left lobe of the thyroid inferiorly, likely a 2.0 centimeter lesion. Chest wall: Bilateral breast implants. Upper abdomen: Colonic diverticulosis. Bones: Unremarkable for age. IMPRESSION: 1. No evidence of pulmonary embolus. 2. Moderate centrilobular emphysema. 3. Prominent left ventricular hypertrophy. 4. Enlargement of the left lobe of the thyroid, probable 2.0 centimeter lesion at the lower pole. Suggest follow-up outpatient thyroid ultrasound for further characterization. 5. Old granulomatous disease. Assessment and Plan Assessment and plan (1) Depression: Problem comment: Patient is experiencing major depression primarily manifested as apathy. Not suicidal but not able to care for herself over the past few weeks. Needs follow-up with primary care provider, primary mental health care provider to reassessed plan of care for depression. Resume home medications. Status: Acute (2) Dyspnea: Problem comment: Chronic dyspnea which is progressive. I favor hypertrophic cardiomyopathy as the primary cause for this. She does not appear to have COPD exacerbation at this time. She is severely deconditioned as well. Obtain echocardiogram. Probably needs outpatient cardiology follow-up as well. Status: Acute (3) Fatigue: Problem comment: Profound fatigue due primarily to depression and secondarily due to exertional dyspnea and underlying heart disease. Cardiology recommends against use of Provigil for her fatigue. Status: Acute (4) Weakness: Problem comment: Due to severe deconditioning and other significant medical problems noted above. PT to assess functional capability Status: Acute (5) Noncompliance with medication regimen: Problem comment: Due to severe apathy with decompensated major depression Status: Acute (6) Hypothyroidism: Problem comment: Elevated TSH due to medication noncompliance most likely. Resume normal dose of levothyroxine and follow-up TSH in 6 weeks. Status: Acute (7) Hypertrophic cardiomyopathy: Problem comment: Longstanding problem. Repeat echo. For now will hold furosemide and atenolol because she is not obviously volume overloaded and blood pressure and pulse are relatively low. Will need Cardiology follow-up. Status: Acute (8) COPD (chronic obstructive pulmonary disease): Problem comment: Carries a diagnosis of COPD from previous smoking but not currently on treatment and not obviously having a COPD exacerbation. Status: Acute (9) Elevated troponin: Problem comment: Mild stable elevation of troponin at 0.07. Electrocardiogram shows hypertrophic cardiomyopathy but is otherwise unremarkable. Likely reflects underlying chronic heart disease. She does have exertional chest pain and dyspnea. Will need outpatient cardiology follow-up. Status: Acute (10) Protein calorie malnutrition: Problem comment: Poor appetite likely due to major depression primarily. Continue to reassess with depression treatment. Status: Acute (11) Chronic fatigue syndrome: Problem comment: Cardiology recommends against use of Provigil for her chronic fatigue due to hypertrophic cardiomyopathy. Status: Acute (12) Hypertension: Problem comment: Blood pressure is relatively low. No evidence of volume overload. Will hold low-dose atenolol and furosemide for now Status: Acute Plan Patient is admitted to the hospital for evaluation management of multiple problems noted above including failure to care for herself, profound fatigue and weakness, worsening depression, heart disease, elevated troponin. In the hospital will need to assess her ability to function independently. If she is discharged to home will need to her family to agree to more of vigorous and frequent monitoring of her status including medication management and compliance, functional status, nutritional status, follow-up medical appointments. Brother and [id number] a indicated a willingness to do this at this time. Total Time Spent Total Time Spent: Total time spent today is 90 minutes, 60 minutes in coordination of care and discussing with patient family and other providers ongoing evaluation management of depression, heart disease, medication management.
[2024-04-04] MEDS: POTASSIUM CHLORIDE 10 MEQ CAPSULE ER PO (18:02)
[2024-04-04] MEDS: FLUOXETINE HCL 20 MG CAPSULE 40 MG PO (18:02)
[2024-04-04] MEDS: TRAZODONE HCL 50 MG TABLET PO (21:01)
[2024-04-04] MEDS: ATORVASTATIN 10 MG TABLET 20 MG PO (21:01)
[2024-04-04] MEDS: SODIUM CHLORIDE 0.9 % (FLUSH) 10 ML SYRINGE 5 ML IVF (21:02)
[2024-04-04] MEDS: MELATONIN 3 MG TABLET PO (21:02)
[2024-04-05 03:00] VITALS: BP 95/60; PULSE 67; RESP 16; TEMP 36.2; O2SAT 98
--- NOTE | 2024-04-05 04:36 | PC.NURSE ---
Shift Note: Pt very pleasant and cooperative with admission. BP's soft, 80's-90's systolically but pt has been asymptomatic. Denies any dyspnea, CP, dizziness, or lightheadedness with position change. Moves well around her room independently. Pt ate 100% of her supper including a veggie omelet, 2 pieces of toast, a fresh fruit cup, 2 glasses of cranberry juice, and a piece of cake. Pt later had an ice cream cup and more toast. She is drinking well and has good urine output although her urine smells quite strong. Denies pain at this time, but did c/o of stomach cramping that did not include any nausea or vomiting. Anesthesiology Tech assisted pt to take a warm shower and change her clothes. Pt stated cramping resolved and appears to be resting comfortably in her bed.
[2024-04-05 06:25] VITALS: PULSE 60
[2024-04-05] MEDS: LEVOTHYROXINE 88 MCG TABLET PO (07:30)
[2024-04-05 07:40] VITALS: BP 93/55; PULSE 66; RESP 16; TEMP 36.6; O2SAT 97
--- NOTE | 2024-04-05 08:13 | PM.IMPN1 ---
Progress Note: A&P Assessment and plan (1) Depression: Problem details: Patient is experiencing major depression primarily manifested as apathy. Not suicidal but not able to care for herself over the past few weeks. Needs follow-up with primary care provider, primary mental health care provider to reassessed plan of care for depression. Resume home medications. (AliciadeepLakeshamellissa Bryant, BURGLAR ALARM INSPECTOR (Nurse Practitioner) - fluoxetine 40, mirtazapine 15 with trazodone 50 (pt has historically taken Modanfinil provigil with a online pharmacy from [place]) Status: Acute (2) Hypertrophic cardiomyopathy: Problem details: Longstanding problem. For now will hold furosemide and atenolol because she is not obviously volume overloaded and blood pressure and pulse are relatively low. Will need Cardiology follow-up. Status: Acute (3) Dyspnea: Problem details: Chronic dyspnea which is progressive. I favor hypertrophic cardiomyopathy as the primary cause for this. She does not appear to have COPD exacerbation at this time. She is severely deconditioned as well. Echo: Status: Acute (4) Fatigue: Problem details: Profound fatigue due primarily to depression and secondarily due to exertional dyspnea and underlying heart disease. Cardiology recommends against use of Provigil for her fatigue (see subjective above) Status: Acute (5) Weakness: Problem details: Due to severe deconditioning and other significant medical problems noted above. PT to assess functional capability Status: Acute (6) Noncompliance with medication regimen: Problem details: Due to severe apathy with decompensated major depression Status: Acute (7) Hypothyroidism: Problem details: Elevated TSH due to medication noncompliance most likely. Resume normal dose of levothyroxine and follow-up TSH in 6 weeks. Status: Acute (8) COPD (chronic obstructive pulmonary disease): Problem details: Carries a diagnosis of COPD from previous smoking but not currently on treatment and not obviously having a COPD exacerbation. Status: Acute (9) Elevated troponin: Problem details: Mild stable elevation of troponin at 0.07 - stable overnight. Electrocardiogram shows hypertrophic cardiomyopathy but is otherwise unremarkable. Likely reflects underlying chronic heart disease. She does have exertional chest pain and dyspnea. Will need outpatient cardiology follow-up. Status: Acute (10) Protein calorie malnutrition: Problem details: Poor appetite likely due to major depression primarily. Continue to reassess with depression treatment. Status: Acute (11) Chronic fatigue syndrome: Problem details: Cardiology recommends against use of Provigil for her chronic fatigue due to hypertrophic cardiomyopathy. Status: Acute (12) Hypertension: Problem details: Blood pressure is relatively low. No evidence of volume overload. Will hold low-dose atenolol and furosemide for now Status: Acute Subjective Date Seen: 04/05/24 Interval history: Daily Progress Note - Hospital Medicine Day #: 2 CC: apathetic depression, hypertrophic cardiomyopathy OVERNIGHT UPDATES FROM STAFF & MED, LAB, IMAGING UPDATES stable night. Patient states I feel so much better - patient is enquiring about going home Afebrile Blood pressures have been soft 86/48, 95/60, 93/55 Pulse 60s Respiratory rate 16 She satting 97 98% on room air Weight this morning 44.9 kilos VBG is normal. Potassium is down to 3.4 Troponin is stable Echo was ordered for today She is on a regular diet without IV fluids Imaging from admission is reviewed. She is on oral Keflex for suspected UTI. Urine cultures in progress. Blood cultures are pending x2 2022 echo done in December is reviewed. Objective: tired appearing Vitals: see above Lungs: Clear. Cardiac: S1S2. no harsh murmur Disposition/Potential discharge - Likely to return to previous living situation. Today I spent 50minutes seeing the patient, reviewing Expanse and EPIC notes/diagnostics, discussing the care plan with our care time that includes social work, PT/OT, pharmacy, RT, long-term and documenting my impressions and plan in the medical record. of note: Modafinil and its R-enantiomer armodafinil are novel nonamphetamine psychostimulants indicated for improved wakefulness in adult patients with excessive sleepiness associated with narcolepsy, KELSIE, or shift-work disorder (SWD). Both medications have similar wake-promoting actions to sympathomimetic stimulant agents, yet differ in pharmacological profile and are thought to have lower potential for abuse and adverse cardiovascular events.?Nonetheless, package labels have similar cardiovascular warnings to the stimulant drugs. Exclusive to modafinil and armodafinil is the warning against use in patients with history of left ventricular hypertrophy or in those with mitral valve prolapse who have experienced mitral valve prolapse with previous PLOW AND BORING MACHINE TENDER stimulant use. This recommendation is based on minimal evidence of 3 patients of such history with observed adverse events of ischemic T-wave changes, dyspnea and palpitations in clinical studies.2 To date, no studies have been published on the safety of modafinil and armodafinil specifically in cardiovascular patients with or without arrhythmias. The safety and tolerability of modafinil was evaluated in six randomized, double-blind, placebo-controlled studies in patients with hypersomnolence and showed infrequent (<1%) clinically significant increases in BP or HR and similar electrocardiogram (ECG) changes to placebo.25 Exam Const: Vital Signs, click to edit/add: Vital Signs - 24 hr 04/04/24 10:51 04/04/24 11:12 04/04/24 11:15 Temperature 97.1 F L Pulse Rate 73 69 Pulse Rate [Left P ulse Oximeter] 68 Pulse Rate [Pulse Oximeter] Respiratory Rate 16 Blood Pressure Blood Pressure [Le ft Arm] Blood Pressure [Ri ght Arm] Blood Pressure [Ri ght Upper Arm] 115/80 Pulse Oximetry 99 98 98 [facility] 04/04/24 11:30 04/04/24 11:45 04/04/24 11:47 Temperature Pulse Rate 68 69 69 Pulse Rate [Left P ulse Oximeter] Pulse Rate [Pulse Oximeter] Respiratory Rate Blood Pressure 115/86 Blood Pressure [Le ft Arm] Blood Pressure [Ri ght Arm] Blood Pressure [Ri ght Upper Arm] Pulse Oximetry 97 97 97 [facility] 04/04/24 11:48 04/04/24 12:27 04/04/24 12:30 Temperature Pulse Rate 70 71 67 Pulse Rate [Left P ulse Oximeter] Pulse Rate [Pulse Oximeter] Respiratory Rate Blood Pressure Blood Pressure [Le ft Arm] Blood Pressure [Ri ght Arm] Blood Pressure [Ri ght Upper Arm] Pulse Oximetry 97 94 96 Oxygen Delivery Me od 04/04/24 12:35 04/04/24 13:00 04/04/24 13:02 Temperature Pulse Rate 68 71 66 Pulse Rate [Left P ulse Oximeter] Pulse Rate [Pulse Oximeter] Respiratory Rate Blood Pressure 105/71 Blood Pressure [Le ft Arm] Blood Pressure [Ri ght Arm] Blood Pressure [Ri ght Upper Arm] Pulse Oximetry 97 95 97 Oxygen Delivery Me od 04/04/24 13:03 04/04/24 13:30 04/04/24 13:32 Temperature Pulse Rate 67 72 65 Pulse Rate [Left P ulse Oximeter] Pulse Rate [Pulse Oximeter] Respiratory Rate Blood Pressure 105/65 Blood Pressure [Le ft Arm] Blood Pressure [Ri ght Arm] Blood Pressure [Ri ght Upper Arm] Pulse Oximetry 96 97 96 [facility] 04/04/24 14:00 04/04/24 14:02 04/04/24 14:30 Temperature Pulse Rate 70 72 72 Pulse Rate [Left P ulse Oximeter] Pulse Rate [Pulse Oximeter] Respiratory Rate Blood Pressure Blood Pressure [Le ft Arm] Blood Pressure [Ri ght Arm] Blood Pressure [Ri ght Upper Arm] Pulse Oximetry 94 94 96 Oxygen Delivery Me thod 04/04/24 15:00 04/04/24 15:02 04/04/24 15:30 Temperature Pulse Rate 67 73 70 Pulse Rate [Left P ulse Oximeter] Pulse Rate [Pulse Oximeter] Respiratory Rate Blood Pressure 98/60 Blood Pressure [Le ft Arm] Blood Pressure [Ri ght Arm] Blood Pressure [Ri ght Upper Arm] Pulse Oximetry 94 96 97 Oxygen Delivery In thod 04/04/24 15:32 04/04/24 15:32 04/04/24 16:00 Temperature Pulse Rate 68 68 68 Pulse Rate [Left P ulse Oximeter] Pulse Rate [Pulse Oximeter] Respiratory Rate Blood Pressure 107/66 107/66 Blood Pressure [Le ft Arm] Blood Pressure [Ri ght Arm] Blood Pressure [Ri ght Upper Arm] Pulse Oximetry 97 97 99 Oxygen Delivery In thod 04/04/24 16:02 04/04/24 17:20 04/04/24 17:26 Temperature 97.1 F L Pulse Rate 68 Pulse Rate [Left P ulse Oximeter] Pulse Rate [Pulse Oximeter] 67 Respiratory Rate 16 16 Blood Pressure 124/75 Blood Pressure [Le ft Arm] Blood Pressure [Ri ght Arm] 111/67 Blood Pressure [Ri ght Upper Arm] Pulse Oximetry 98 98 99 [facility] Room Air 04/04/24 18:22 04/04/24 19:00 04/04/24 23:00 Temperature 96.9 F L Pulse Rate 69 Pulse Rate [Left P ulse Oximeter] Pulse Rate [Pulse Oximeter] 72 63 Respiratory Rate 16 16 Blood Pressure Blood Pressure [Le ft Arm] Blood Pressure [Ri ght Arm] 95/60 Blood Pressure [Ri ght Upper Arm] Pulse Oximetry 96 Oxygen Delivery Me thod Room Air 04/04/24 23:00 04/04/24 23:00 04/05/24 03:00 Temperature 97.3 F L 97.1 F L Pulse Rate 63 Pulse Rate [Left P ulse Oximeter] Pulse Rate [Pulse Oximeter] 63 67 Respiratory Rate 16 16 Blood Pressure Blood Pressure [Le ft Arm] 85/58 L Blood Pressure [Ri ght Arm] 86/48 L 95/60 Blood Pressure [Ri ght Upper Arm] Pulse Oximetry 98 98 Oxygen Delivery Me thod Room Air Room Air 04/05/24 06:25 04/05/24 07:40 Temperature 97.9 F Pulse Rate 60 Pulse Rate [Left P ulse Oximeter] Pulse Rate [Pulse Oximeter] 66 Respiratory Rate 16 Blood Pressure Blood Pressure [Le ft Arm] 93/55 L Blood Pressure [Ri ght Arm] Blood Pressure [Ri ght Upper Arm] Pulse Oximetry 97 Oxygen Delivery Me thod Room Air Labs Labs: Laboratory Results - last 24 hr 04/04/24 04/04/24 04/04/24 11:45 12:50 14:33 WBC 4.07 L RBC 4.34 Hgb 13.8 Hct 40.7 MCV 94 MCH 32 MCHC 34 RDW Coeff of [place] 12.1 Plt Count 219 Neut % (Auto) 60.2 Lymph % (Auto) 28.5 Bent % (Auto) 8.8 Eos % (Auto) 2.0 Baso % (Auto) 0.5 Neut # (Auto) 2.50 Lymph # (Auto) 1.20 Bent # (Auto) 0.40 Eos # (Auto) 0.10 Baso # (Auto) 0.00 Abs Immat Gran (auto) 0.00 Imm/Tot Granulo (auto) 0.0 Sodium 136 Potassium 3.5 L Chloride 98 Carbon Dioxide 28 Anion Gap 10 BUN 20 Creatinine 1.1 Estimated Creat Clear 27.60 Estimated GFR 52 Glucose 112 Lactate 1.5 Calcium 9.5 Total Bilirubin 0.6 AST 45 H ALT 14 Alkaline Phosphatase 122 Troponin I 0.07 H* 0.07 H* NT-Pro-B Natriuret Pep 8470 Total Protein 7.6 Albumin 4.7 TSH 7.740 H Free T4 1.00 Urine Color Dark yellow Urine Appearance Cloudy A Urine pH 5.5 Ur Specific [place] 1.025 Urine Protein 1+ A Urine Glucose (UA) Negative Urine Ketones Trace A Urine Blood 1+ A Urine Nitrite Negative Urine Bilirubin 2+ A Urine Urobilinogen 0.2 Ur Leukocyte Esterase 3+ A Urine RBC 0-2 Urine WBC 10-25 A Ur Squamous Epith Cells Few Urine Bacteria Moderate A Urine Mucus Many A Ethyl Alcohol < 0.01 L
[2024-04-05] MEDS: FLUOXETINE HCL 20 MG CAPSULE 40 MG PO (08:33)
[2024-04-05] MEDS: POTASSIUM CHLORIDE 10 MEQ CAPSULE ER PO (08:33)
[2024-04-05] MEDS: cephALEXin 500 MG CAPSULE PO ×2 (08:33→13:25)
[2024-04-05] MEDS: SODIUM CHLORIDE 0.9 % (FLUSH) 10 ML SYRINGE 5 ML IVF (08:35)
[2024-04-05 09:16] LABS: HCO3 VBG 28 mmol/L (21-28); PCO2 VBG 41 mmHG (40-50); PO2 VBG 46.5 mmHG (25-47); pH VBG 7.436 (7.32-7.43)
[2024-04-05 09:43] LABS: Chloride* 104 mmol/L (96-114); Potassium* 3.4 mmol/L (3.6-5.1); Sodium* 138 mmol/L (135-149)
[2024-04-05 09:46] LABS: Anion Gap 8 mEq/L (7-15); Blood Urea Nitrogen* 20 mg/dL (7-30); Carbon Dioxide* 26 mmol/L (20-32); Creatinine* 0.9 mg/dL (0.5-1.5); Est. Creatinine Clearance* 33.36; Estimated Glomerular Filt Rate 66 ml/min
[2024-04-05 09:47] LABS: Calcium* 9.2 mg/dL (8.4-10.6); Glucose* 109 mg/dL (60-115); Magnesium* 1.7 mg/dL (1.5-2.6)
[2024-04-05 10:07] LABS: Troponin I* 0.06 ng/mL (0.01-0.04)
[2024-04-05 10:49] VITALS: BP 104/61; PULSE 76; RESP 18; TEMP 36.5; O2SAT 97
[2024-04-05] MEDS: PERFLUTREN LIPID MICROSPHERES 2 ML VIAL IV (12:19)
[2024-04-05] MEDS: POTASSIUM CHLORIDE 10 MEQ CAPSULE ER 40 MEQ PO (12:46)
--- NOTE | 2024-04-05 13:27 | PM.DS1 ---
DS: Providers Provider Date Seen: 04/05/24 Date of admission: 04/04/24 16:29 Primary care physician: Leland Light MD Admitting Clinician: Tej Zhao MD Consults: 04/04/24 16:23 Consult to Nutrition [CONS] Routine Comment: Reason for consult:: Nutritional Consult Consult to Occupational Therapy [CONS] Routine Comment: Reason(s) for OT Consult:: Evaluate and Treat Any Restrictions?:: No Restrictions Consult to Physical Therapy [CONS] Routine Comment: Reason(s) for PT Consult:: Evaluate and Treat Any Restrictions?:: No Restrictions Consult to Retail Coverage Merchandiser [CONS] Routine Comment: Reason for Consult:: Discharge Planning Needs 04/04/24 17:48 Consult to Retail Coverage Merchandiser [CONS] Routine Comment: Reason for Consult:: PT Requests Adv Dir Info 04/04/24 22:53 Consult to Occupational Therapy [CONS] Routine Comment: Reason(s) for OT Consult:: Evaluate and Treat Any Restrictions?:: No Restrictions Attending Physician on discharge: Gabby Campos MD [facility] Date of Discharge: 04/05/24 DS: Diagnosis Discharge Diagnosis (1) Depression: Status: Acute Problem details: Patient is experiencing major depression primarily manifested as apathy. Not suicidal but not able to care for herself over the past few weeks. Needs follow-up with primary care provider, primary mental health care provider to reassessed plan of care for depression. Resume home medications. (Dalila Darden NP (Nurse Practitioner) - fluoxetine 60, mirtazapine 15 (pt has historically taken Modanfinil provigil with a online pharmacy from [facility]) -Modafinil and its R-enantiomer armodafinil are novel nonamphetamine psychostimulants indicated for improved wakefulness in adult patients with excessive sleepiness associated with narcolepsy, KELSIE, or shift-work disorder (SWD). Both medications have similar wake-promoting actions to sympathomimetic stimulant agents, yet differ in pharmacological profile and are thought to have lower potential for abuse and adverse cardiovascular events. Nonetheless, package labels have similar cardiovascular warnings to the stimulant drugs. Exclusive to modafinil and armodafinil is the warning against use in patients with history of left ventricular hypertrophy or in those with mitral valve prolapse who have experienced mitral valve prolapse with previous [employer] stimulant use. This recommendation is based on minimal evidence of 3 patients of such history with observed adverse events of ischemic T-wave changes, dyspnea and palpitations in clinical studies.2 To date, no studies have been published on the safety of modafinil and armodafinil specifically in cardiovascular patients with or without arrhythmias. The safety and tolerability of modafinil was evaluated in six randomized, double-blind, placebo-controlled studies in patients with hypersomnolence and showed infrequent (<1%) clinically significant increases in BP or HR and similar electrocardiogram (ECG) changes to placebo.25 (2) Noncompliance with medication regimen: Status: Acute Problem details: Due to severe apathy with decompensated major depression (3) Hypertrophic cardiomyopathy: Status: Acute Problem details: Updated echo and d/w Dr. Pride -no new findings -I'm holding her atenolol until she sees PCP as her BP was low overnight here. -f/u with PCP/Cards (4) Dyspnea: Status: Acute Problem details: Chronic mostly due to deconditioning and anxiety/depression LVH is no worse; valve function is no worse continue lasix at discharge hold atenolol until she sees PCP (5) Fibromyalgia: Status: Acute (6) Elevated troponin: Status: Acute Problem details: Mild stable elevation of troponin at 0.07 - stable overnight. Electrocardiogram shows hypertrophic cardiomyopathy but is otherwise unremarkable. Likely reflects underlying chronic heart disease. She does have exertional chest pain and dyspnea. Will need outpatient cardiology follow-up. (7) Hypertension: Status: Acute Problem details: Blood pressure is relatively low. No evidence of volume overload. DS: Summary Hospital Course Hospital Course: FINAL DIAGNOSIS/FOLLOW UP ISSUES: 1. Severe depression: Restarted her medications. Prozac and mirtazapine. We discussed the use of a stimulant in her apathetic depression. I stressed the need for psychiatry, stimulant use verses ECT verses partial or full inpatient treatments were reviewed. Patient denies had any suicidal or homicidal thoughts. She states that she feels more hopeful than yesterday. we did discuss the use of Provigil - data seems scant on cardiovascular outcomes. I have asked her to speak with cardiology and Psychiatry about stimulant use with structural heart disease. 2. Left ventricular hypertrophy /cardiomyopathy: Troponin remained mildly elevated but flat. Her echo was really unchanged from last year. We discussed the need for cardiology follow-up. She was mildly hypotensive and I have held her atenolol until she sees her PCP. 3. Mild hypokalemia. Orally replaced. BRIEF HOSPITAL COURSE: Patient was admitted overnight. Synopsis of acute inpatient issues are outlined above. Chronic medical conditions with notable findings outlined above. DISCHARGE MEDICATIONS: See Reconciled list - SIGNIFICANT CHANGES: holding atenolol Specific instructions to the patient and follow-up are outlined below. REVIEW OF SYSTEMS No new chest pain or dyspnea Pain controlled No voiding difficulties Tolerating diet challenge PHYSICAL EXAM: CONSTITUTIONAL: alert, sits up and is interactive. No psychomotor agitation or slowing. VITAL SIGNS: see record. HEENT: Normocephalic, atraumatic. PERRL, EOMI, conjunctivae pink, no scleral icterus. Ears and nose externally normal. Pharynx normal. NECK: No JVD. No carotid bruit, no thyromegaly, no adenopathy. CHEST: Clear to auscultation bilaterally. HEART: S1 and S2 normal. Edema ABDOMEN: Soft, nontender. Normal bowel sounds. MUSCULOSKELETAL: No gross joint deformity or swelling. NEURO: Cranial nerves intact. Grossly intact. No asymmetric findings. SKIN: No rashes, petechiae, concerning changes PSYCHIATRIC: Mood euthymic. DISPOSITION: home with family support Time spent on discharge 37 minutes. Time Spent with Patient Time attestation: Total time spent providing and/or coordinating discharge services: Exam Const: Vital Signs, click to edit/add: Vital Signs - 24 hr 04/04/24 13:30 04/04/24 13:32 04/04/24 14:00 Temperature Pulse Rate 72 65 70 Pulse Rate [Pulse Oximeter] Respiratory Rate Blood Pressure 105/65 Blood Pressure [Le ft Arm] Blood Pressure [Ri ght Arm] Pulse Oximetry 97 96 94 Oxygen Delivery Me thod 04/04/24 14:02 04/04/24 14:30 04/04/24 15:00 Temperature Pulse Rate 72 72 67 Pulse Rate [Pulse Oximeter] Respiratory Rate Blood Pressure Blood Pressure [Le ft Arm] Blood Pressure [Ri ght Arm] Pulse Oximetry 94 96 94 Oxygen Delivery Me thod 04/04/24 15:02 04/04/24 15:30 04/04/24 15:32 Temperature Pulse Rate 73 70 68 Pulse Rate [Pulse Oximeter] Respiratory Rate Blood Pressure 98/60 107/66 Blood Pressure [Le ft Arm] Blood Pressure [Ri ght Arm] Pulse Oximetry 96 97 97 Oxygen Delivery Me thod 04/04/24 15:32 04/04/24 16:00 04/04/24 16:02 Temperature Pulse Rate 68 68 68 Pulse Rate [Pulse Oximeter] Respiratory Rate Blood Pressure 107/66 124/75 Blood Pressure [Le ft Arm] Blood Pressure [Ri ght Arm] Pulse Oximetry 97 99 98 Oxygen Delivery Me thod 04/04/24 17:20 04/04/24 17:26 04/04/24 18:22 Temperature 97.1 F L Pulse Rate 69 Pulse Rate [Pulse Oximeter] 67 Respiratory Rate 16 16 Blood Pressure Blood Pressure [Le ft Arm] Blood Pressure [Ri ght Arm] 111/67 Pulse Oximetry 98 99 Oxygen Delivery Me thod Room Air Room Air 04/04/24 19:00 04/04/24 23:00 04/04/24 23:00 Temperature 96.9 F L Pulse Rate 63 Pulse Rate [Pulse Oximeter] 72 63 Respiratory Rate 16 16 Blood Pressure Blood Pressure [Le ft Arm] Blood Pressure [Ri ght Arm] 95/60 Pulse Oximetry 96 Oxygen Delivery Tx thod Room Air 04/04/24 23:00 04/05/24 03:00 04/05/24 06:25 Temperature 97.3 F L 97.1 F L Pulse Rate 60 Pulse Rate [Pulse Oximeter] 63 67 Respiratory Rate 16 16 Blood Pressure Blood Pressure [Le ft Arm] 85/58 L Blood Pressure [Ri ght Arm] 86/48 L 95/60 Pulse Oximetry 98 98 Oxygen Delivery Tx thod Room Air Room Air 04/05/24 07:40 04/05/24 10:49 Temperature 97.9 F 97.7 F Pulse Rate Pulse Rate [Pulse Oximeter] 66 76 Respiratory Rate 16 18 Blood Pressure Blood Pressure [Le ft Arm] 93/55 L 104/61 Blood Pressure [Ri ght Arm] Pulse Oximetry 97 97 Oxygen Delivery Me thod Room Air Room Air DS: Data Data Completed and Pending Labs on day of discharge: Labs from last 24 hours 04/05/24 04/04/24 04/04/24 09:12 14:33 12:50 VBG pH 7.436 H VBG pCO2 41 VBG pO2 46.5 VBG HCO3 28 Sodium 138 Potassium 3.4 L Chloride 104 Carbon Dioxide 26 Anion Gap 8 BUN 20 Creatinine 0.9 Estimated Creat Clear 33.36 Estimated GFR 66 Glucose 109 Calcium 9.2 Magnesium 1.7 Troponin I 0.06 H* 0.07 H* Free T4 Urine Color Dark yellow Urine Appearance Cloudy A Urine pH 5.5 Ur Specific [place] 1.025 Urine Protein 1+ A Urine Glucose (UA) Negative Urine Ketones Trace A Urine Blood 1+ A Urine Nitrite Negative Urine Bilirubin 2+ A Urine Urobilinogen 0.2 Ur Leukocyte Esterase 3+ A Urine RBC 0-2 Urine WBC 10-25 A Ur Squamous Epith Cells Few Urine Bacteria Moderate A Urine Mucus Many A 04/04/24 11:45 VBG pH VBG pCO2 VBG pO2 VBG HCO3 Sodium Potassium Chloride Carbon Dioxide Anion Gap BUN Creatinine Estimated Creat Clear Estimated GFR Glucose Calcium Magnesium Troponin I Free T4 1.00 Urine Color Urine Appearance Urine pH Ur Specific [place] Urine Protein Urine Glucose (UA) Urine Ketones Urine Blood Urine Nitrite Urine Bilirubin Urine Urobilinogen Ur Leukocyte Esterase Urine RBC Urine WBC Ur Squamous Epith Cells Urine Bacteria Urine Mucus Preliminary micro results at discharge 04/04/24 12:21 Blood Culture - Preliminary Blood NO GROWTH AFTER 24 HOURS 04/04/24 11:45 Blood Culture - Preliminary Blood NO GROWTH AFTER 24 HOURS 04/04/24 12:50 Urine Culture - Preliminary Urine,Clean Catch < 50,000 COL/ML MIXED GRAM POSITIVE CATALINO ISOLATED NO FURTHER WORKUP Discharge Plan Discharge Disposition: Home, Self-Care Date of Admission: 04/04/24 16:29 Attending Provider on Discharge: Gabby Campos Primary Care Provider: Leland Light Condition: Stable Anticipated Discharge Date/Time: 04/05/24 13:22 Discharge Medications: Continued atorvastatin 20 mg tablet 20 mg PO HS fluoxetine 40 mg capsule 40 mg PO DAILY Patient Comments: 60 MG TOTAL fluoxetine 20 mg tablet 20 mg PO DAILY Patient Comments: 60 MG TOTAL furosemide 20 mg tablet 20 mg PO DAILY levothyroxine 88 mcg capsule 88 mcg PO DAILY mirtazapine 15 mg tablet 15 mg PO HS modafinil 200 mg tablet 200 mg PO TID potassium chloride [Klor-Con M20] 20 mEq tablet,ER particles/crystals 20 meq PO DAILY Held atenolol 25 mg tablet 12.5 mg PO DAILY Hold Instructions: Resume on 04/19/24. Talk about this medication with Dr. Light. I'm keeping it on hold as your blood pressure is low. Discharge Orders: Discharge Order (Routine); Ordered 04/05/24 Ordered By: Gabby Campos Patient Education: Chronic Fatigue Syndrome (DC), Depression (DC), COPD (Chronic Obstructive Pulmonary Disease) (DC) Additional Instructions: Please see Dr. Mendoza as directed. He will be able to direct you on a psychiatry referral and f/u with cardiology. Research on Provigil (Modanfinil) as you asked regarding heart diseae and specifically left ventricle hypertrophy: Modafinil and its R-enantiomer armodafinil are novel nonamphetamine psychostimulants indicated for improved wakefulness in adult patients with excessive sleepiness associated with narcolepsy, KELSIE, or shift-work disorder (SWD). Both medications have similar wake-promoting actions to sympathomimetic stimulant agents, yet differ in pharmacological profile and are thought to have lower potential for abuse and adverse cardiovascular events.?Nonetheless, package labels have similar cardiovascular warnings to the stimulant drugs. Exclusive to modafinil and armodafinil is the warning against use in patients with history of left ventricular hypertrophy or in those with mitral valve prolapse who have experienced mitral valve prolapse with previous [employer] stimulant use. This recommendation is based on minimal evidence of 3 patients of such history with observed adverse events of ischemic T-wave changes, dyspnea and palpitations in clinical studies.2 To date, no studies have been published on the safety of modafinil and armodafinil specifically in cardiovascular patients with or without arrhythmias. The safety and tolerability of modafinil was evaluated in six randomized, double-blind, placebo-controlled studies in patients with hypersomnolence and showed infrequent (<1%) clinically significant increases in BP or HR and similar electrocardiogram (ECG) changes to placebo.25 Activity Level: Activity as Tolerated Discharge Diet: Regular Follow Up Appointments: Leland Light MD [Primary Care Provider] - 04/12/24 ([facility] F[facility]U) Forms: [employer] Info Instructions
--- NOTE | 2024-04-05 14:38 | NUTR.NU ---
RDN with MD consult for Nutritional consult. RDN attempted to visit with patient x4, however patient was not available on all attempts. Patient discharged before RDN could visit.
--- NOTE | 2024-04-05 14:43 | PC.SOCIAL ---
Discharge planning: product development worker met with the pt this afternoon and provided her with Advanced Care Planning information. Pt was thankful for the information and will take it home with her to go over with her family. Pt stated that she has had bad experiences in the past with social workers from the [facility] and stated that she did not want another [facility] clinical social worker coming to her apartment to check on her. product development worker explained that this clinical social worker works for the [facility] and not the [facility] and could assist her while she was here in the hospital. Pt stated that she didn't think she needed any other resources at this time. Social work to follow-up as needed.
--- NOTE | 2024-04-05 15:38 | PC.NURSE ---
Discharge: Patient pleasant and cooperative. Vitals stable, BP soft however patient has been asymptomatic. Good appetite, denies pain. Worked with PT/OT. IV removed. Discharge instructions, follow up, and medications reviewed. Patient family here to bring home, discharged via wheelchair @ 1445.
== END 2024-04-05 15:15 | disposition home or self-care (01) ==
LOC: ED 12:04 → MEDSURG 18:44
PROVIDERS: Family Medicine; Admitting Provider Hospitalist; Emergency Provider Emergency Medicine; PCP Family Medicine; Visit Provider Family Medicine
DX: R53.1 Weakness (principal); F32.A Depression, unspecified; R79.89 Other specified abnormal findings of blood chemistry; R06.09 Other forms of dyspnea; Z91.148 Patient's other noncompliance with medication regimen for other reason; I42.2 Other hypertrophic cardiomyopathy; R53.83 Other fatigue; E87.6 Hypokalemia; E03.9 Hypothyroidism, unspecified; R94.6 Abnormal results of thyroid function studies; R94.31 Abnormal electrocardiogram [ECG] [EKG]; R82.90 Unspecified abnormal findings in urine; I08.1 Rheumatic disorders of both mitral and tricuspid valves; E04.1 Nontoxic single thyroid nodule; I95.9 Hypotension, unspecified; G93.32 Myalgic encephalomyelitis/chronic fatigue syndrome; J44.9 Chronic obstructive pulmonary disease, unspecified; E46 Unspecified protein-calorie malnutrition; F41.9 Anxiety disorder, unspecified; M79.7 Fibromyalgia; I10 Essential (primary) hypertension; G47.30 Sleep apnea, unspecified; F12.90 Cannabis use, unspecified, uncomplicated; Z87.891 Personal history of nicotine dependence; Z98.82 Breast implant status; Z86.79 Personal history of other diseases of the circulatory system; Z87.42 Personal history of other diseases of the female genital tract; Z98.890 Other specified postprocedural states
CPT/HCPCS: 36415; 70450; 71046; 71275; 80048; 80053; 81001; 82077; 82803; 83605; 83735; 83880; 84439; 84443; 84484; 85025; 87040; 87086; 93005; 93306; 96365; 96366; 97161; 97165; 99283; 99285; G0378; A9270; J3411; J7030; Q9957; Q9967

== ENCOUNTER 2024-07-26 21:35 | Outpatient (CLI) | payer MEDICARE, OTHER, SELFPAY | END 2024-07-26 21:36 | disposition home or self-care (01) | LOC: AMB 07-31 23:46 | PROVIDERS: PCP Family Medicine; Visit Provider Family Medicine | DX: F41.9 Anxiety disorder, unspecified (principal) | CPT/HCPCS: A0425; A0427 ==

== ENCOUNTER 2024-07-26 22:14 | Emergency (ER) | payer MEDICARE, OTHER, SELFPAY ==
[2024-07-26] VITALS (9 sets, daily range): BP systolic 138; BP diastolic 85; PULSE 85; RESP 20; TEMP 36.1; O2SAT 94–97
--- NOTE | 2024-07-26 22:16 | ED.GENADULT ---
HPI - General Adult General Time Seen by Provider: 22:16 Date Seen: 07/26/24 Chief complaint: Unspecified Complaint, Adult Stated complaint: Withdrawl Time Seen by Provider: 07/26/24 22:16 Source: patient and RN notes reviewed Mode of arrival: EMS Limitations: no limitations History of Present Illness HPI narrative: Sharee is a very pleasant 79-year-old female with history of narcolepsy, sleep apnea who recently discontinued Provigil a week ago, started Remeron or mirtazapine instead and thinks she may be having a medication reaction. Patient notes discontinuing her Provigil a week ago on the advice of her provider because she has hypertrophic cardiomyopathy. She says that the press brake operator feels this is okay but her primary wanted her to switched to Remeron. She started taking Remeron and was not feeling very good and thus discontinued it 2 nights ago on July 24. Last evening she started experiencing diarrhea and very bad abdominal pain. Today she has had a little bit of diarrhea in association with nausea but no vomiting. She did take 2 doses of Provigil today because she thought she was having a reaction or withdrawal but notes that she is not feeling any better. She feels that she is very jittery and this has been ongoing for the past few days but much worse tonight. Patient denies chest pain, shortness of breath, unusual lower extremity edema, fevers chills or cough. Related Data Home Medications ?Medication ?Instructions ?Recorded ?Confirmed atenolol 25 mg tablet 12.5 mg PO DAILY 04/04/24 04/04/24 atorvastatin 20 mg tablet 20 mg PO HS 04/04/24 07/26/24 fluoxetine 20 mg tablet 20 mg PO DAILY 04/04/24 07/26/24 fluoxetine 40 mg capsule 40 mg PO DAILY 04/04/24 07/26/24 furosemide 20 mg tablet 20 mg PO DAILY 04/04/24 07/26/24 levothyroxine 88 mcg capsule 88 mcg PO DAILY 04/04/24 07/26/24 mirtazapine 15 mg tablet 15 mg PO HS 04/04/24 04/04/24 modafinil 200 mg tablet 200 mg PO TID 04/04/24 07/26/24 potassium chloride 20 mEq 20 meq PO DAILY 04/04/24 04/04/24 tablet,extended release(part/cryst) (Klor-Con M) Allergies Allergy/AdvReac Type Severity Reaction Status Date / Time No Known Drug Allergies Allergy Verified 07/26/24 22:27 Review of Systems Status of ROS: Reports: 10 or more systems reviewed and unremarkable except as noted in History and below Const: Denies: fever or chills Eyes: Denies: change in vision ENMT: Denies: throat pain, neck pain, throat swelling, nasal discharge or nasal congestion Cardio: Denies: chest pain, edema or shortness of breath with exertion Resp: Denies: shortness of breath or cough GI: Reports: abdominal pain, nausea and diarrhea; Denies: blood in stool : Denies: painful urination or urinary frequency Musculo: Denies: neck pain Neuro: Reports: involuntary movements (Feeling jittery); Denies: headache or weakness in extremities Allergy/Immuno: Denies: throat swelling PFSH PFSH Medical History Hypertension ?I10 - Essential (primary) hypertension (ICD-10) Elevated troponin ?R79.89 - Other specified abnormal findings of blood chemistry (ICD-10) COPD (chronic obstructive pulmonary disease) ?J44.9 - Chronic obstructive pulmonary disease, unspecified (ICD-10) Weakness ?R53.1 - Weakness (ICD-10) Fatigue ?R53.83 - Other fatigue (ICD-10) Dyspnea ?R06.00 - Dyspnea, unspecified (ICD-10) Protein calorie malnutrition ?E46 - Unspecified protein-calorie malnutrition (ICD-10) Noncompliance with medication regimen ?Z91.148 - Patient's other noncompliance with medication regimen for other reason (ICD-10) Hypothyroidism ?E03.9 - Hypothyroidism, unspecified (ICD-10) Vitamin D deficiency ?E55.9 - Vitamin D deficiency, unspecified (ICD-10) Chronic fatigue syndrome ?G93.32 - Myalgic encephalomyelitis/chronic fatigue syndrome (ICD-10) Restless legs syndrome ?G25.81 - Restless legs syndrome (ICD-10) Fibromyalgia ?M79.7 - Fibromyalgia (ICD-10) Depression ?F32.A - Depression, unspecified (ICD-10) Hypertrophic cardiomyopathy ?I42.2 - Other hypertrophic cardiomyopathy (ICD-10) Surgical History S/P thyroid biopsy ?Z98.890 - Other specified postprocedural states (ICD-10) H/O ovarian cystectomy ?Z98.890 - Other specified postprocedural states (ICD-10) ?Z87.42 - Personal history of other diseases of the female genital tract (ICD-10) History of colonoscopy ?Z98.890 - Other specified postprocedural states (ICD-10) H/O breast augmentation ?Z98.82 - Breast implant status (ICD-10) H/O oral surgery ?Z98.890 - Other specified postprocedural states (ICD-10) Social History Narrative: She lives alone in an apartment in [place]. She reports closest family is her brother, Adan and [id number] Susan who also live in [place]. They indicate interest and motivation to be vigilant about checking on Sharee to make sure she is doing okay and taking her medications, taking care of herself, making medical appointments after discharge. She has a remote history of smoking but not recently. She does not drink alcohol. She does not use recreational drugs except a rare use of cannabis but not recently What is your current living situation?: I presently have a place to live Problems where you live: water leaks Problems where you live details: water leaking in ceiling of apartment d/t neighbors above. In the past 12 months, utilities in danger of being shut off: no In past 12 months, lack of transportation kept you from medical appts, meetings, work, or getting things needed for daily living: no In the past 12 mos, have been you worried that your food would run out before you had money to buy more?: never true In the past 12 mos, the food you bought just didn't last and you didn't have money to buy more?: never true Highest level of school completed/degree received: Associate degree: occupational, technical, vocational program Smoking Status: Former smoker Nicotine containing products detail: quit 6 or 7 years ago per pt report Second hand tobacco smoke exposure: No How often do you have a drink containing alcohol: never AUDIT-C Alcohol total score: 0 Non-prescribed substance use: marijuana (any form) Non-prescribed substance use details: rare use Caffeine: Yes (1-3 sodas daily) How often does anyone, including family, friends and others, physically hurt you: never How often does anyone, including family, friends and others, insult or talk down to you: rarely How often does anyone, including family, friends and others, threaten you with harm: never How often does anyone, including family, friends and others, scream or curse at you: rarely service: No Exam Narrative: Exam Narrative: Sharee is awake and alert. Sharee is noted to have dystonic type reaction in her neck her face and she is pursing her lips. She is moving her arms. There is random movement in addition to purposeful movement. This is causing her distress. External ears eyes nose clear. Heart with regular rate and rhythm. Lungs clear. Abdomen soft. Lower extremities without edema. She is able to move all of her extremities. No evidence of bruising. Const: Vital Signs, click to edit/add: Vital Signs - 24 hr 07/26/24 22:27 07/26/24 23:16 07/26/24 23:17 Temperature 97 F L Pulse Rate [Pulse Oximeter] 85 Respiratory Rate 20 Blood Pressure [Ri ght Upper Arm] 138/85 Pulse Oximetry 97 95 94 Oxygen Delivery Me thod Room Air 07/26/24 23:20 07/26/24 23:30 07/26/24 23:31 Temperature Pulse Rate [Pulse Oximeter] Respiratory Rate Blood Pressure [Ri ght Upper Arm] Pulse Oximetry 96 95 96 Oxygen Delivery Me thod 07/26/24 23:40 07/26/24 23:47 07/26/24 23:50 Temperature Pulse Rate [Pulse Oximeter] Respiratory Rate Blood Pressure [Ri ght Upper Arm] Pulse Oximetry 96 95 96 Oxygen Delivery Me thod 07/27/24 00:00 07/27/24 00:01 07/27/24 00:01 Temperature Pulse Rate [Pulse Oximeter] Respiratory Rate Blood Pressure [Ri ght Upper Arm] Pulse Oximetry 97 96 96 Oxygen Delivery Me thod 07/27/24 00:01 07/27/24 00:10 Temperature Pulse Rate [Pulse Oximeter] Respiratory Rate Blood Pressure [Ri ght Upper Arm] Pulse Oximetry 96 96 Oxygen Delivery Me thod Documenting provider has reviewed patient's vital signs: yes Course Course ED Course: At this time Sharee is presenting with what appears to be a dystonic reaction. She has been on Remeron and Provigil and there are no reports of these medications causing this. However, she denies a history of a movement disorder. Will give her Benadryl 25 mg to see if this helps. Will also check CBC, comprehensive panel, CRP, troponin, urinalysis, proBNP. Reevaluation(s) Reevaluation #1: Patient is much improved after receiving Benadryl. At this time a literature search does not show Remeron being involved in a dystonic reaction. Last dose of this medication was 48 hours ago. Patient did restart her Provigil this morning and had 2 doses today. She notes that she is feeling like she is back to normal and would like to go home now. Unfortunately her point of care troponin has come back elevated at 0.05 and therefore I have asked her to stay. Given the fact that she is home alone, we cannot see explain the initial presentation, I have asked her to remain in the hospital overnight. Reevaluation #2: Patient continues to feel much better after IV Benadryl. Initial troponin is 0.05. Second troponin is 0.06. Having lab do a backup troponin on the 2nd draw at this time. EKG is essentially unchanged from previous. Patient has known hypertrophic cardiomyopathy. Looking back at previous notes it appear she may have chronically elevated troponin as it was 0.07 with really no change during her time here during hospitalization in March. Reevaluation #3: During patient's stay Sharee's daughter was on the phone from [place]. Prior to my knowledge of chronically elevated troponin in March I did state that the level was slightly increased today and if he gets too high could be indicative a heart of a heart attack. I do explained to Sharee that I now realize that this is likely a chronic state for her. There is no evidence of a heart attack tonight. Vital Signs Vital signs: Initial Vital Signs Temperature 97 F L 07/26/24 22:27 Temperature Source Temporal Artery Scan 07/26/24 22: Pulse Rate 85 07/26/24 22:27 Pulse Rhythm Regular 07/26/24 22: Pulse Strength 3+ Normal 07/26/24 22:27 Respiratory Rate 20 07/26/24 22:27 Blood Pressure 138/85 07/26/24 22:27 Blood Pressure Mean 102 07/26/24 22:27 Pulse Oximetry 97 07/26/24 22:27 Oxygen Delivery Method Room Air 07/26/24 22:27 Vital Signs Temperature 97 F L 07/26/24 22:27 Pulse Rate 85 07/26/24 22:27 Respiratory Rate 20 07/26/24 22:27 Blood Pressure 138/85 07/26/24 22:27 Pulse Oximetry 97 07/26/24 22:27 Oxygen Delivery Method Room Air 07/26/24 22:27 Temperature 97 F L 07/26/24 22:27 Pulse Rate 85 07/26/24 22:27 Respiratory Rate 20 07/26/24 22:27 Blood Pressure 138/85 07/26/24 22:27 Pulse Oximetry 96 07/27/24 00:10 Oxygen Delivery Method Room Air 07/26/24 22:27 Medications Administered Medications: Discontinued Medications Generic Name Dose Route Start Last Admin Trade Name Freq PRN Reason Stop Dose Admin Diphenhydramine HCl 25 mg 07/26/24 22:31 07/26/24 22:52 Diphenhydramine 50 Mg/Ml Inj IVP 07/26/24 22:32 25 mg ONCE ONE Administration Sodium Chloride 1,000 mls @ 1,000 mls/hr 07/26/24 23:13 07/27/24 00:36 0.9 % Sodium Chloride 1000 Ml IV 07/27/24 00:12 Infused .Q1H JAYLENE Infusion Medical Decision Making MDM Narrative Medical decision making narrative: 1. Dystonic reaction-patient remarkably and 99% improved after Benadryl 25 mg IV. I am unable to explain why this may have occurred. Patient noted to have diarrhea yesterday but denies the use of Compazine Phenergan or any other anti diarrheal medication. Mirtazapine and Provigil do not appear to have a tendency to cause this. Patient remains improved. I have asked patient to discontinue the use of both of these medications. 2. Elevated troponin -this appears to be chronic for her. Initial troponin 0.05 and 2nd 0.06. Looking back at admission from March 2024, patient had elevated troponin of 0.07. This is likely chronic for her given her hypertrophic cardiomyopathy. Patient denies any chest pain and EKGs have not changed. I spoke with hospitalist in regards to this patient. Does not feel that this is needing admission for further monitoring given past history. 3. Hyper trophic cardiomyopathy-EF 75%. ProBNP 8700 which is consistent with previous. Chest x-ray without evidence of significant CHF. 4. Depression-patient has history of chronic fatigue and fibromyalgia as well as depression and had significant relief of the symptoms with the use of Provigil. Unfortunately this is contraindicated in the cases of the hypertrophic cardiomyopathy and patient was discontinued from this medication over a week ago. She notes that the Remeron did not help in fact made her feel worse. At this time I do not have alternative medication for her. She notes that she would be willing to accept the risk of sudden /CA/arrhythmia while using Provigil as she ?does not want to be a vegetable for the rest of her life?. I have asked her to speak to her physician Dr. Light in regards to this. An appointment with Psychiatry may also be helpful in this case. 5. Disposition-home at this time. After initial plan to admit overnight for observation, have now found that she likely has chronically elevated troponins based on previous visit. I also spoke to our hospitalist who does not feel the patient needs to be admitted at this time. Seek medical attention for worsening symptoms and as needed. Medical Records Medical records reviewed: Yes I reviewed the patient's medical records Lab Data Lab results reviewed: Yes I reviewed the patient's lab results Labs: Lab Results 07/26/24 07/26/24 07/26/24 Range/Units 00:38 22:31 22:46 WBC 5.42 (4.50-11.00) K/uL RBC 4.43 (4.00-5.20) m/uL Hgb 13.9 (12.0-16.0) gm/dL Hct 41.8 (33.0-51.0) % MCV 94 (80-100) fL MCH 31 (26-34) pg MCHC 33 (32-36) gm/dL RDW Coeff of Lea 12.2 (11.5-15.5) % Plt Count 261 (140-440) K/uL Neut % (Auto) 66.7 (42.0-72.0) % Lymph % (Auto) 22.9 (20-44) % Barron % (Auto) 8.5 (0.0-11.0) % Eos % (Auto) 0.6 (0.0-7.0) % Baso % (Auto) 0.4 (0.0-3.0) % Neut # (Auto) 3.62 (1.7-7.0) K/uL Lymph # (Auto) 1.24 (0.90-2.90) K/uL Barron # (Auto) 0.50 (0.00-0.90) K/UL Eos # (Auto) 0.03 (0.00-0.50) K/uL Baso # (Auto) 0.02 (0.00-0.30) K/uL Abs Immat Gran (auto) 0.05 (0.00-0.30) K/uL Imm/Tot Granulo (auto) 0.9 % Sodium 132 L (135-149) mmol/L Potassium 3.5 L (3.6-5.1) mmol/L Chloride 95 L (96-114) mmol/L Carbon Dioxide 26 (20-32) mmol/L Anion Gap 11 (7-15) mEq/L BUN 51 H (7-30) mg/dL Creatinine 1.4 (0.5-1.5) mg/dL Estimated GFR 39 ml/min Glucose 132 H (60-115) mg/dL Calcium 9.7 (8.4-10.6) mg/dL Total Bilirubin 0.4 (0.1-1.5) mg/dL AST 30 (12-35) U/L ALT 15 (4-35) U/L Alkaline Phosphatase 151 H (40-150) U/L Total Creatine Kinase 66 (41-117) U/L Troponin I 0.05 H (0.01-0.04) ng/mL C-Reactive Protein 0.7 (0.5-1.0) mg/dL NT-Pro-B Natriuret Pep 8720 pg/mL Total Protein 7.8 (6.0-8.3) g/dL Albumin 4.7 (3.3-5.0) g/dL Urine Color Yellow (Yellow) Urine Appearance Clear (Clear) Urine pH 5.5 (5.0-8.5) Ur Specific [place] <= 1.005 (1.000-1.030) Urine Protein Negative (Negative) Urine Glucose (UA) Negative (Negative) Urine Ketones Negative (Negative) Urine Blood Trace-intact A (Negative) Urine Nitrite Negative (Negative) Urine Bilirubin Negative (Negative) Urine Urobilinogen 0.2 (0.2-1.0) Ur Leukocyte Esterase Trace A (Negative) Urine RBC 0-2 (0-2) Urine WBC 0-2 (0-5) Ur Squamous Epith Cells Few (None-Few) Urine Bacteria Few A (None) Lab Acknowledgement POC Troponin I 0.05 H (0.01-0.04) ng/ml 07/27/24 07/27/24 Range/Units 00:06 00:45 WBC (4.50-11.00) K/uL RBC (4.00-5.20) m/uL Hgb (12.0-16.0) gm/dL Hct (33.0-51.0) % MCV (80-100) fL MCH (26-34) pg MCHC (32-36) gm/dL RDW Coeff of [place] (11.5-15.5) % Plt Count (140-440) K/uL Neut % (Auto) (42.0-72.0) % Lymph % (Auto) (20-44) % Barron % (Auto) (0.0-11.0) % Eos % (Auto) (0.0-7.0) % Baso % (Auto) (0.0-3.0) % Neut # (Auto) (1.7-7.0) K/uL Lymph # (Auto) (0.90-2.90) K/uL [place] # (Auto) (0.00-0.90) K/UL Eos # (Auto) (0.00-0.50) K/uL Baso # (Auto) (0.00-0.30) K/uL Abs Immat Gran (auto) (0.00-0.30) K/uL Imm/Tot Granulo (auto) % Sodium (135-149) mmol/L Potassium (3.6-5.1) mmol/L Chloride (96-114) mmol/L Carbon Dioxide (20-32) mmol/L Anion Gap (7-15) mEq/L BUN (7-30) mg/dL Creatinine (0.5-1.5) mg/dL Estimated GFR ml/min Glucose (60-115) mg/dL Calcium (8.4-10.6) mg/dL Total Bilirubin (0.1-1.5) mg/dL AST (12-35) U/L ALT (4-35) U/L Alkaline Phosphatase (40-150) U/L Total Creatine Kinase (41-117) U/L Troponin I (0.01-0.04) ng/mL C-Reactive Protein (0.5-1.0) mg/dL NT-Pro-B Natriuret Pep pg/mL Total Protein (6.0-8.3) g/dL Albumin (3.3-5.0) g/dL Urine Color (Yellow) Urine Appearance (Clear) Urine pH (5.0-8.5) Ur Specific [place] (1.000-1.030) Urine Protein (Negative) Urine Glucose (UA) (Negative) Urine Ketones (Negative) Urine Blood (Negative) Urine Nitrite (Negative) Urine Bilirubin (Negative) Urine Urobilinogen (0.2-1.0) Ur Leukocyte Esterase (Negative) Urine RBC (0-2) Urine WBC (0-5) Ur Squamous Epith Cells (None-Few) Urine Bacteria (None) Lab Acknowledgement Test Added POC Troponin I 0.06 H (0.01-0.04) ng/ml ECG Data Attestation: I personally reviewed and interpreted this ECG as follows: Interpretation: EKG 1. By my read shows sinus rhythm at a rate of 81. She definitely has criteria for hypertrophy. Nonspecific ST and T-wave abnormality. QT and MN intervals within normal limits. EKG 2. By my read shows sinus rhythm at a rate of 70. Essentially unchanged from previous. Compared to previous from 03/24/2024 largely unchanged. Discharge Plan Discharge Clinical Impression: Hypertrophic cardiomyopathy, Elevated troponin, Dystonic drug reaction Patient Disposition: Home, Self-Care Condition: Improved Additional Instructions: Please discontinue both the Provigil and mirtazapine as I do not know which medication may have caused the reaction you experienced today. Follow-up with your clinic for re-evaluation. Speak to your provider about Provigil if this is what worked well for you and you understand the risks of taking this medication. Return to the emergency room for worsening symptoms and as needed. Prescriptions: No Action atorvastatin 20 mg tablet 20 mg PO HS fluoxetine 40 mg capsule 40 mg PO DAILY Patient Comments: 60 MG TOTAL fluoxetine 20 mg tablet 20 mg PO DAILY Patient Comments: 60 MG TOTAL furosemide 20 mg tablet 20 mg PO DAILY levothyroxine 88 mcg capsule 88 mcg PO DAILY mirtazapine 15 mg tablet 15 mg PO HS modafinil 200 mg tablet 200 mg PO TID Hold Instructions: Order Change potassium chloride [Klor-Con M20] 20 mEq tablet,ER particles/crystals 20 meq PO DAILY atenolol 25 mg tablet 12.5 mg PO DAILY Hold Instructions: Resume on 04/19/24. Talk about this medication with Dr. Light. I'm keeping it on hold as your blood pressure is low. Follow Up/Referrals: Leland Light MD [Primary Care Provider] - Stand Alone Forms: [facility] Info Instructions
[2024-07-26] MEDS: diphenhydrAMINE 50 MG/ML inj 25 MG IVP (22:52)
[2024-07-26 22:56] LABS: Troponin, Point-of-Care* 0.05 ng/ml (0.01-0.04)
[2024-07-26 23:02] LABS: Albumin* 4.7 g/dL (3.3-5.0); Basophils Absolute Auto 0.02 K/uL (0.00-0.30); Basophils Percent Auto 0.4 % (0.0-3.0); Chloride* 95 mmol/L (96-114); Eosinophils Absolute Auto 0.03 K/uL (0.00-0.50); Eosinophils Percent Auto 0.6 % (0.0-7.0); Hematocrit 41.8 % (33.0-51.0); Hemoglobin* 13.9 gm/dL (12.0-16.0); Immature Granulocytes Abs Auto 0.05 K/uL (0.00-0.30); Immature Granulocytes Pct Auto 0.9 %; Lymphocytes Absolute Auto 1.24 K/uL (0.90-2.90); Lymphocytes Percent Auto 22.9 % (20-44); Mean Corpuscular HGB Conc 33 gm/dL (32-36); Mean Corpuscular Hemoglobin 31 pg (26-34); Mean Corpuscular Volume 94 fL (80-100); Monocytes Percent Auto 8.5 % (0.0-11.0); Neutrophils Absolute Auto 3.62 K/uL (1.7-7.0); Neutrophils Percent Auto 66.7 % (42.0-72.0); Platelet Count* 261 K/uL (140-440); RDW Coefficient of Variation % 12.2 % (11.5-15.5); Red Blood Count 4.43 m/uL (4.00-5.20); White Blood Count* 5.42 K/uL (4.50-11.00)
[2024-07-26 23:03] LABS: Potassium* 3.5 mmol/L (3.6-5.1); Sodium* 132 mmol/L (135-149)
[2024-07-26 23:05] LABS: Alkaline Phosphatase* 151 U/L (40-150); Anion Gap 11 mEq/L (7-15); Aspartate Amino Transferase* 30 U/L (12-35); Bilirubin Total* 0.4 mg/dL (0.1-1.5); Blood Urea Nitrogen* 51 mg/dL (7-30); Carbon Dioxide* 26 mmol/L (20-32); Creatine Kinase* 66 U/L (41-117); Creatinine* 1.4 mg/dL (0.5-1.5); Estimated Glomerular Filt Rate 39 ml/min; Total Protein* 7.8 g/dL (6.0-8.3)
[2024-07-26 23:06] LABS: Alanine Aminotransferase* 15 U/L (4-35); Calcium* 9.7 mg/dL (8.4-10.6); Glucose* 132 mg/dL (60-115)
[2024-07-26 23:08] LABS: C Reactive Protein* 0.7 mg/dL (0.5-1.0)
[2024-07-26 23:09] LABS: Slide Review Reflex No
[2024-07-26] MEDS: 0.9 % SODIUM CHLORIDE 1000 ml 1,000 ML IV (23:19)
[2024-07-27] VITALS: O2SAT 97
[2024-07-27 00:01] VITALS: O2SAT 96
[2024-07-27 00:10] VITALS: O2SAT 96
[2024-07-27 00:34] LABS: NT Pro B Type NatriureticPept* 8720 pg/mL
[2024-07-27 00:54] LABS: Appearance Urine Clear (Clear); Bilirubin Urine Negative (Negative); Blood Urine Trace-intact (Negative); Color Urine Yellow (Yellow); Glucose Urine Negative (Negative); Ketones Urine Negative (Negative); Leukocyte Esterase Urine Trace (Negative); Nitrite Urine Negative (Negative); Protein Urine Negative (Negative); Specific Gravity Urine <= 1.005 (1.000-1.030); Urobilinogen Urine 0.2 (0.2-1.0); pH Urine 5.5 (5.0-8.5)
[2024-07-27 00:58] LABS: Troponin, Point-of-Care* 0.06 ng/ml (0.01-0.04)
[2024-07-27 00:58] LABS: Bacteria Urine Few; RBC Urine 0-2 (0-2); Squamous Epithelial Cell Urine Few (None-Few); WBC Urine 0-2 (0-5)
--- NOTE | 2024-07-27 01:26 | CRLHL7_ITS ---
For Patients: As a result of the Cures Act, medical imaging exams and procedure reports are released immediately into your electronic medical record. You may view this report before your referring provider. If you have questions, please contact your health care provider. Indication: Elevated troponin Technique: Single-view chest Comparison: Chest CT and radiograph performed 11/27/2021 Findings/Impression: No acute cardiopulmonary process detected. Dictated by Logan De Paz MD @ 07/27/2024 3:07:19 AM (Electronically Signed)
[2024-07-27 02:57] LABS: Troponin I* 0.05 ng/mL (0.01-0.04)
== END 2024-07-27 03:13 | disposition home or self-care (01) ==
PROVIDERS: Emergency Provider Family Medicine; PCP Family Medicine
DX: G24.02 Drug induced acute dystonia (principal); I42.2 Other hypertrophic cardiomyopathy; R79.89 Other specified abnormal findings of blood chemistry
CPT/HCPCS: 36415; 71045; 80053; 81001; 82550; 83880; 84484; 85025; 86140; 87086; 93005; 96374; 99284; J1200; J7030

== ENCOUNTER 2024-12-02 12:43 | Outpatient (CLI) | payer MEDICARE, OTHER, SELFPAY | END 2024-12-02 12:44 | disposition home or self-care (01) | LOC: AMB 12-05 14:04 | PROVIDERS: PCP Family Medicine; Visit Provider Family Medicine | DX: R06.02 Shortness of breath (principal); R53.1 Weakness | CPT/HCPCS: A0425; A0427 ==

== ENCOUNTER 2024-12-02 13:17 | Emergency (ER) | payer MEDICARE, OTHER, SELFPAY ==
[2024-12-02 13:21] VITALS: BP 150/83; PULSE 77; RESP 24; TEMP 36.9; O2SAT 98; BMI 18.3
--- NOTE | 2024-12-02 13:38 | ED.GENADULT ---
HPI - General Adult General Chief complaint: Anxiety Stated complaint: Difficulty breathing Time Seen by Provider: 12/02/24 13:24 History of Present Illness HPI narrative: Pt brought by EMS. EMS suspects panic attack. EMS does report pt did have a fall at some point around a week ago, pt denies any injury from that fall. Pt does state she has had more balance issues lately. Pt complains of trouble breathing. Pt appears quite anxious in triage. Does hyperventilate when resting and is looking around/ fidgeting anxiously but when asked questions pt anxiety appears distractible and she is breathing in a normal pattern when answering. Pt states she has pain all over (knees, arms, back, Pt does endorse dx of fibromyalgia. Pt unsure of current medications, is working with the clinic on medication management. Pt volunteers that she has issues with depression and lack of energy but denies any SI at this time . 79-year-old woman presenting to the emergency department with concern of a pain all over. She was just pacing all over the apartment she said This is her 1st complaint ?I hurt everywhere? She appears stressed and anxious. She notes her history of fibromyalgia. Feels like she is not getting enough treatment for stress. She indicates some depression as well. Says she does not take anything for anxiety ?they do not give me anything?. Review of medications does show fluoxetine. No apparent rashes. No cough. She does endorse a history of COPD but that is not really been acting up she says Later incorporated when she has managed to calm down she says she feels much better. Restless legs to complicate things to. Treatment is could be exacerbated by anemia as discomfort here in the emergency department. She had had a flare of GERD she says or heartburn last night to but sounds like it may have been gases it was treated with baking soda and sounds like [place] equivalent Related Data Home Medications ?Medication ?Instructions ?Recorded ?Confirmed atenolol 25 mg tablet 12.5 mg PO DAILY 04/04/24 04/04/24 atorvastatin 20 mg tablet 20 mg PO HS 04/04/24 07/26/24 fluoxetine 20 mg tablet 20 mg PO DAILY 04/04/24 07/26/24 fluoxetine 40 mg capsule 40 mg PO DAILY 04/04/24 07/26/24 furosemide 20 mg tablet 20 mg PO DAILY 04/04/24 07/26/24 levothyroxine 88 mcg capsule 88 mcg PO DAILY 04/04/24 07/26/24 mirtazapine 15 mg tablet 15 mg PO HS 04/04/24 04/04/24 modafinil 200 mg tablet 200 mg PO TID 04/04/24 07/26/24 potassium chloride 20 mEq 20 meq PO DAILY 04/04/24 04/04/24 tablet,extended release(part/cryst) (Klor-Con M) Previous Rx's ?Medication ?Instructions ?Recorded lorazepam 0.5 mg tablet 0.5 mg PO BID PRN anxiety #5 tabs 12/02/24 Allergies Allergy/AdvReac Type Severity Reaction Status Date / Time gabapentin Allergy Unknown Verified 12/02/24 13:25 Review of Systems Status of ROS: Reports: 6 or more systems reviewed and unremarkable except as noted in History and below [facility] Medical History Hypertension ?I10 - Essential (primary) hypertension (ICD-10) Elevated troponin ?R79.89 - Other specified abnormal findings of blood chemistry (ICD-10) COPD (chronic obstructive pulmonary disease) ?J44.9 - Chronic obstructive pulmonary disease, unspecified (ICD-10) Weakness ?R53.1 - Weakness (ICD-10) Fatigue ?R53.83 - Other fatigue (ICD-10) Dyspnea ?R06.00 - Dyspnea, unspecified (ICD-10) Protein calorie malnutrition ?E46 - Unspecified protein-calorie malnutrition (ICD-10) Noncompliance with medication regimen ?Z91.148 - Patient's other noncompliance with medication regimen for other reason (ICD-10) Hypothyroidism ?E03.9 - Hypothyroidism, unspecified (ICD-10) Vitamin D deficiency ?E55.9 - Vitamin D deficiency, unspecified (ICD-10) Chronic fatigue syndrome ?G93.32 - Myalgic encephalomyelitis/chronic fatigue syndrome (ICD-10) Restless legs syndrome ?G25.81 - Restless legs syndrome (ICD-10) Fibromyalgia ?M79.7 - Fibromyalgia (ICD-10) Depression ?F32.A - Depression, unspecified (ICD-10) Hypertrophic cardiomyopathy ?I42.2 - Other hypertrophic cardiomyopathy (ICD-10) Surgical History S/P thyroid biopsy ?Z98.890 - Other specified postprocedural states (ICD-10) H/O ovarian cystectomy ?Z98.890 - Other specified postprocedural states (ICD-10) ?Z87.42 - Personal history of other diseases of the female genital tract (ICD-10) History of colonoscopy ?Z98.890 - Other specified postprocedural states (ICD-10) H/O breast augmentation ?Z98.82 - Breast implant status (ICD-10) H/O oral surgery ?Z98.890 - Other specified postprocedural states (ICD-10) Social History Narrative: She lives alone in an apartment in [place]. She reports closest family is her brother, Adan and [id number] Susan who also live in [place]. They indicate interest and motivation to be vigilant about checking on Sharee to make sure she is doing okay and taking her medications, taking care of herself, making medical appointments after discharge. She has a remote history of smoking but not recently. She does not drink alcohol. She does not use recreational drugs except a rare use of cannabis but not recently What is your current living situation?: I presently have a place to live Problems where you live: water leaks Problems where you live details: water leaking in ceiling of apartment d/t neighbors above. In the past 12 months, utilities in danger of being shut off: no In past 12 months, lack of transportation kept you from medical appts, meetings, work, or getting things needed for daily living: no In the past 12 mos, have been you worried that your food would run out before you had money to buy more?: never true In the past 12 mos, the food you bought just didn't last and you didn't have money to buy more?: never true Highest level of school completed/degree received: Associate degree: occupational, technical, vocational program Smoking Status: Former smoker Nicotine containing products detail: quit 6 or 7 years ago per pt report Second hand tobacco smoke exposure: No How often do you have a drink containing alcohol: never AUDIT-C Alcohol total score: 0 Non-prescribed substance use: marijuana (any form) Non-prescribed substance use details: rare use Caffeine: Yes (1-3 sodas daily) How often does anyone, including family, friends and others, physically hurt you: never How often does anyone, including family, friends and others, insult or talk down to you: rarely How often does anyone, including family, friends and others, threaten you with harm: never How often does anyone, including family, friends and others, scream or curse at you: rarely service: No Health Related Social Needs: Inadequate housing (Z59.1) and Other personal risk factors, not elsewhere classified (Z91.89) Exam Narrative: Exam Narrative: Agitated. Breathing easily though alternates briefly tachypneic and then settles again. As I am attempting to examine and assist to seated position begins crying out in pain with palpation over the upper back. She claims related to fibromyalgia but asks me not to touch. Lungs are clear. Heart in regular rate and rhythm. Extremities are well perfused without edema. Abdomen is soft and nontender on later examination Const: Vital Signs, click to edit/add: Vital Signs - 24 hr 12/02/24 13:21 Temperature 98.5 F Pulse Rate [Pulse Oximeter] 77 Respiratory Rate 24 Blood Pressure [Ri ght Upper Arm] 150/83 H Pulse Oximetry 98 Oxygen Delivery Me thod Room Air Documenting provider has reviewed patient's vital signs: yes Course Vital Signs Vital signs: Initial Vital Signs Temperature 98.5 F 12/02/24 13:21 Temperature Source Temporal Artery Scan 12/02/24 13:21 Pulse Rate 77 12/02/24 13:21 Respiratory Rate 24 12/02/24 13:21 Blood Pressure 150/83 H 12/02/24 13:21 Blood Pressure Mean 105 12/02/24 13:21 Blood Pressure Position Sitting 12/02/24 13:21 Pulse Oximetry 98 12/02/24 13:21 Oxygen Delivery Method Room Air 12/02/24 13:21 Vital Signs Temperature 98.5 F 12/02/24 13:21 Pulse Rate 77 12/02/24 13:21 Respiratory Rate 24 12/02/24 13:21 Blood Pressure 150/83 H 12/02/24 13:21 Pulse Oximetry 98 12/02/24 13:21 Oxygen Delivery Method Room Air 12/02/24 13:21 Temperature 98.5 F 12/02/24 13:21 Pulse Rate 77 12/02/24 13:21 Respiratory Rate 24 12/02/24 13:21 Blood Pressure 150/83 H 12/02/24 13:21 Pulse Oximetry 98 12/02/24 13:21 Oxygen Delivery Method Room Air 12/02/24 13:21 Medications Administered Medications: Discontinued Medications Generic Name Dose Route Start Last Admin Trade Name Jordana PRN Reason Stop Dose Admin Lorazepam 1 mg 12/02/24 13:46 12/02/24 14:03 Lorazepam 1 Mg Tablet PO 12/02/24 13:47 1 mg ONCE ONE Administration Medical Decision Making MDM Narrative Medical decision making narrative: Diffuse pain I think suggests rheumatological or nonspecific viral etiology. Possibly related to underlying fibromyalgia and exacerbation of depression or anxiety. Sounds to have experienced a panic attack today Will check basic labs. History of malnutrition. Labs show a 3 g hemoglobin drop over the last 4 months. Today 10.6. Anemia could be contributing to restless legs as well. Elevated CRP at 5 and mildly elevated ESR. Was given 1 mg oral lorazepam sure initial assessment. On reassessment is markedly improved. She says much more relaxed. Even pain has improved. With regard to her feelings about stress and potential SI -- she says that she loves her family and her cat. In fact she is anxious to get home to her cat. She does not desire to harm herself. She does acknowledge that she needs somebody to talk to. She has been having trouble sleeping. Discuss that lorazepam would not be primary sleep aid. Sounds like she has been told not to take NSAIDs before. This might be concern also with anemia. She does mention what she would describe as a flare of heartburn at some point last night as well. See patient discharge plan for further discussion Please schedule follow-up with your primary care provider soon as possible. I think you will need further evaluation for this anemia. Should discuss your stress and pain management as well. Am prescribing a small quantity of lorazepam. As I said, be cautious with this medication. It tends to be sedating as well. I think it would benefit you to schedule with a therapist. Your primary care provider would be good to talk to and would probably have some ideas. If you feel unsafe, please return to the emergency department. Medical Records Medical records reviewed: Yes I reviewed the patient's medical records Lab Data Lab results reviewed: Yes I reviewed the patient's lab results Labs: Lab Results 12/02/24 12/02/24 Range/Units 13:53 13:58 WBC 6.03 (4.50-11.00) K/uL RBC 3.54 L (4.00-5.20) m/uL Hgb 10.6 L (12.0-16.0) gm/dL Hct 33.2 (33.0-51.0) % MCV 94 (80-100) fL MCH 30 (26-34) pg MCHC 32 (32-36) gm/dL RDW Coeff of [place] 14.9 (11.5-15.5) % Plt Count 247 (140-440) K/uL Neut % (Auto) 76.0 H (42.0-72.0) % Lymph % (Auto) 14.6 L (20-44) % [place] % (Auto) 7.6 (0.0-11.0) % Eos % (Auto) 1.3 (0.0-7.0) % Baso % (Auto) 0.3 (0.0-3.0) % Neut # (Auto) 4.60 (1.7-7.0) K/uL Lymph # (Auto) 0.90 (0.90-2.90) K/uL [place] # (Auto) 0.50 (0.00-0.90) K/UL Eos # (Auto) 0.08 (0.00-0.50) K/uL Baso # (Auto) 0.02 (0.00-0.30) K/uL Abs Immat Gran (auto) 0.01 (0.00-0.30) K/uL Imm/Tot Granulo (auto) 0.2 % ESR 33 H (2-20) mm/hr Sodium 136 (135-149) mmol/L Potassium 4.6 (3.6-5.1) mmol/L Chloride 106 (96-114) mmol/L Carbon Dioxide 24 (20-32) mmol/L Anion Gap 6 L (7-15) mEq/L BUN 15 (7-30) mg/dL Creatinine 0.7 (0.5-1.5) mg/dL Estimated Creat Clear 33.74 Estimated GFR 89 ml/min Glucose 111 (60-115) mg/dL Calcium 9.0 (8.4-10.6) mg/dL C-Reactive Protein 5.0 H (0.5-1.0) mg/dL SARS-CoV-2 (PCR) Negative SARS-CoV-2 (Negative) Influenza Type A (PCR) Negative PCR FLU A (Negative) Influenza Type B (PCR) Negative PCR FLU B (Negative) RSV (PCR) Negative PCR RSV (Negative) Discharge Plan Discharge Clinical Impression: Polyarthralgia, Restless legs, Insomnia, Anemia, Anxiety Patient Disposition: Home w/ Parent or Adult Condition: Improved Additional Instructions: Please schedule follow-up with your primary care provider soon as possible. I think you will need further evaluation for this anemia. Should discuss your stress and pain management as well. Am prescribing a small quantity of lorazepam. As I said, be cautious with this medication. It tends to be sedating as well. I think it would benefit you to schedule with a therapist. Your primary care provider would be good to talk to and would probably have some ideas. If you feel unsafe, please return to the emergency department. Prescriptions: New lorazepam 0.5 mg tablet 0.5 mg PO BID PRN (Reason: anxiety) Qty: 5 0RF No Action atorvastatin 20 mg tablet 20 mg PO HS fluoxetine 40 mg capsule 40 mg PO DAILY Patient Comments: 60 MG TOTAL fluoxetine 20 mg tablet 20 mg PO DAILY Patient Comments: 60 MG TOTAL furosemide 20 mg tablet 20 mg PO DAILY levothyroxine 88 mcg capsule 88 mcg PO DAILY mirtazapine 15 mg tablet 15 mg PO HS modafinil 200 mg tablet 200 mg PO TID potassium chloride [Klor-Con M20] 20 mEq tablet,ER particles/crystals 20 meq PO DAILY atenolol 25 mg tablet 12.5 mg PO DAILY Follow Up/Referrals: Leland Light MD [Primary Care Provider] - Stand Alone Forms: [employer] Info Instructions
[2024-12-02] MEDS: LORazepam 1 MG TABLET PO (14:03)
[2024-12-02 14:04] LABS: Basophils Absolute Auto 0.02 K/uL (0.00-0.30); Basophils Percent Auto 0.3 % (0.0-3.0); Eosinophils Absolute Auto 0.08 K/uL (0.00-0.50); Eosinophils Percent Auto 1.3 % (0.0-7.0); Hematocrit 33.2 % (33.0-51.0); Hemoglobin* 10.6 gm/dL (12.0-16.0); Immature Granulocytes Abs Auto 0.01 K/uL (0.00-0.30); Immature Granulocytes Pct Auto 0.2 %; Lymphocytes Percent Auto 14.6 % (20-44); Mean Corpuscular HGB Conc 32 gm/dL (32-36); Mean Corpuscular Hemoglobin 30 pg (26-34); Mean Corpuscular Volume 94 fL (80-100); Monocytes Percent Auto 7.6 % (0.0-11.0); Platelet Count* 247 K/uL (140-440); RDW Coefficient of Variation % 14.9 % (11.5-15.5); Red Blood Count 3.54 m/uL (4.00-5.20); White Blood Count* 6.03 K/uL (4.50-11.00)
[2024-12-02 14:10] LABS: Slide Review Reflex No
[2024-12-02 14:18] LABS: Chloride* 106 mmol/L (96-114); Potassium* 4.6 mmol/L (3.6-5.1); Sodium* 136 mmol/L (135-149)
[2024-12-02 14:21] LABS: Anion Gap 6 mEq/L (7-15); Blood Urea Nitrogen* 15 mg/dL (7-30); Carbon Dioxide* 24 mmol/L (20-32); Creatinine* 0.7 mg/dL (0.5-1.5); Est. Creatinine Clearance* 33.74; Estimated Glomerular Filt Rate 89 ml/min; Glucose* 111 mg/dL (60-115)
[2024-12-02 14:41] LABS: PCR FLU A Negative PCR FLU A (Negative); PCR FLU B Negative PCR FLU B (Negative); PCR RSV Negative PCR RSV (Negative); SARS PCR* Negative SARS-CoV-2 (Negative)
[2024-12-02 14:49] LABS: Erythrocyte SedimentationRate* 33 mm/hr (2-20)
== END 2024-12-02 15:39 | disposition home or self-care (01) ==
PROVIDERS: Emergency Provider Family Medicine; PCP Family Medicine
DX: M13.0 Polyarthritis, unspecified (principal); G47.00 Insomnia, unspecified; D64.9 Anemia, unspecified
CPT/HCPCS: 36415; 80048; 85025; 85651; 86140; 87631; 99284; A9270